=== PATIENT | female | born 1935 | race Caucasian/White ===

== ENCOUNTER 2020-01-16 04:32 | Inpatient (IN) ==
[2020-01-16] MEDS ORDERED: Isovue-370 500 ML BOTTLE IVP ONE (05:02)
[2020-01-16 05:18] LABS: Basophils # 0.1 K/mcL (0.0-0.2); Basophils % 0.6 %; Eosinophils # 0.3 K/mcL (0.0-0.6); Hematocrit 39.2 % (35.3-44.9); Hemoglobin 13.2 g/dL (11.5-15.4); Immature Granulocytes % 0.4 % (0-4); Lymphocytes # 2.2 K/mcL (0.6-4.6); Lymphocytes % 23.3 %; Mean Corpuscular HGB Conc 33.7 g/dL (31.6-35.5); Mean Corpuscular Hemoglobin 32.2 pg (28.0-33.3); Mean Corpuscular Volume 95.6 fL (83.0-100.0); Mean Platelet Volume 10.2 fL (9.4-12.4); Monocytes # 1.1 K/mcL (0.0-1.3); Monocytes % 12.2 %; Neutrophils # 5.7 K/mcL (1.6-8.9); Platelet Count 251 K/mcL (140-400); Prothrombin Time 11.6 Seconds (9.4-12.1); Red Cell Distribution Width 12.9 % (11.5-14.5); Segmented Neutrophils % 60.5 %; White Blood Count 9.4 K/mcL (4.3-11.1)
[2020-01-16 05:21] LABS: Activated Partial Thrombo Time 36.2 Seconds (26.0-36.0)
[2020-01-16 05:29] LABS: Alanine Aminotransferase 19 Units/L (7-52); Albumin 4.1 g/dL (3.5-5.7); Albumin/Globulin Ratio 1.5 (1.1-2.2); Alkaline Phosphatase 78 Units/L (34-104); Aspartate Amino Transferase 22 Units/L (13-39); BUN/Creatinine Ratio 28 (6-26); Bilirubin,Direct 0.1 mg/dL (0.0-0.2); Bilirubin,Indirect 0.3 mg/dL (0.0-1.0); Bilirubin,Total 0.4 mg/dL (0.3-1.0); Blood Urea Nitrogen 33 mg/dL (8-23); Calcium 9.4 mg/dL (8.6-10.3); Carbon Dioxide 27 mEq/L (23-29); Chloride 103 mEq/L (98-107); Globulin 2.7 g/dL (2.4-3.5); Glucose 97 mg/dL (70-105); Lipase 42 Units/L (11-82); Osmolality,Calculated 293 (280-300); Potassium 3.7 mEq/L (3.5-5.1); Sodium 138 mEq/L (136-145); Total Protein 6.8 g/dL (6.4-8.9); Troponin I < 0.03 ng/mL (< 0.04); eGFR For African Americans 53 (> 60); eGFR For Non-African Americans 44 (> 60)
[2020-01-16] MEDS ORDERED: Aspirin 325 MG TABLET PO ONE (06:35)
[2020-01-16 06:44] LABS: Bilirubin,Urine Negative (Negative); Blood,Urine Negative (Negative); Clarity,Urine Clear (Clear); Color,Urine Colorless (Yellow); Glucose,Urine (UA) Normal (Normal); Ketones,Urine Negative (Negative); Leukocyte Esterase,Urine Small (Negative); Nitrite,Urine Negative (Negative); PH,Urine 6.5 pH Units (5.0-8.0); Protein,Urine Negative (Neg-Trace); Specific Gravity,Urine 1.026 (1.010-1.025); Squamous Epithelial Cell,Urine Few per hpf (None-Few); Urobilinogen,Urine Normal (Normal)
[2020-01-16] MEDS ORDERED: Morphine Sulfate 2 MG/ML SYRINGE IVP ONE (07:06)
[2020-01-16] MEDS: Nitroglycerin 0.4 MG TAB.SUBL SL PRN ×2 (07:22→07:28)
[2020-01-16 07:58] LABS: Adenovirus Not Detected (Not Detect); Bordetella Pertussis Not Detected (Not Detect); Chlamydophila pneumoniae Not Detected (Not Detect); Coronavirus 229E Not Detected (Not Detect); Coronavirus HKU1 Not Detected (Not Detect); Coronavirus NL63 Not Detected (Not Detect); Coronavirus OC43 Not Detected (Not Detect); Human Metapneumovirus Not Detected (Not Detect); Human Rhinovirus/Enterovirus Not Detected (Not Detect); Influenza A Subtype 2009 H1 Not Detected (Not Detect); Influenza B Not Detected (Not Detect); Mycoplasma pneumoniae Not Detected (Not Detect); Parainfluenza Virus 1 Not Detected (Not Detect); Parainfluenza Virus 2 Not Detected (Not Detect); Parainfluenza Virus 3 Not Detected (Not Detect); Parainfluenza Virus 4 Not Detected (Not Detect); Respiratory Syncytial Virus Not Detected (Not Detect); SARS-CoV-2 Not Detected (Not Detect)
[2020-01-16] MEDS ORDERED: Naloxone 0.4 MG/ML INJ IVP PRN (08:09)
[2020-01-16] MEDS ORDERED: Nitroglycerin 0.4 MG TAB.SUBL SL PRN (08:11)
[2020-01-16] MEDS ORDERED: Loratadine 10 MG TABLET PO PRN (08:11)
[2020-01-16] MEDS ORDERED: Ondansetron 4 MG/2 ML VIAL IVP PRN (08:12)
[2020-01-16] MEDS: Isosorbide MONOnitrate (24 HR) 30 MG TAB.ER.24H PO SCH (10:56)
[2020-01-16] MEDS: Acetaminophen 325 MG TABLET PO PRN ×2 (16:10→21:34)
[2020-01-16] MEDS: Latanoprost 2.5 ML BOTTLE BOTH EYES SCH (21:34)
[2020-01-17 02:13] LABS: Basophils # 0.1 K/mcL (0.0-0.2); Basophils % 0.7 %; Eosinophils # 0.3 K/mcL (0.0-0.6); Eosinophils % 3.7 %; Hematocrit 35.5 % (35.3-44.9); Hemoglobin 11.9 g/dL (11.5-15.4); Immature Granulocytes % 0.3 % (0-4); Lymphocytes # 2.2 K/mcL (0.6-4.6); Lymphocytes % 28.9 %; Mean Corpuscular HGB Conc 33.5 g/dL (31.6-35.5); Mean Corpuscular Hemoglobin 32.7 pg (28.0-33.3); Mean Corpuscular Volume 97.5 fL (83.0-100.0); Mean Platelet Volume 10.1 fL (9.4-12.4); Monocytes # 0.9 K/mcL (0.0-1.3); Monocytes % 11.6 %; Neutrophils # 4.1 K/mcL (1.6-8.9); Platelet Count 216 K/mcL (140-400); Red Blood Count 3.64 M/mcL (3.82-4.97); Red Cell Distribution Width 12.9 % (11.5-14.5); Segmented Neutrophils % 54.8 %; White Blood Count 7.5 K/mcL (4.3-11.1)
[2020-01-17 02:32] LABS: Calcium 9.1 mg/dL (8.6-10.3); Potassium 3.4 mEq/L (3.5-5.1)
[2020-01-17] MEDS ORDERED: Regadenoson 0.4 MG/5 ML SYRINGE IVP ONE (05:51)
[2020-01-17] MEDS: Isosorbide MONOnitrate (24 HR) 30 MG TAB.ER.24H PO SCH (09:55)
[2020-01-17] MEDS: Aspirin Enteric Coated 81 MG Tablet PO SCH (09:56)
[2020-01-17] MEDS: Acetaminophen 325 MG TABLET PO PRN ×2 (13:18→23:12)
[2020-01-17] MEDS: Latanoprost 2.5 ML BOTTLE BOTH EYES SCH (20:49)
[2020-01-17] MEDS ORDERED: Melatonin 3 MG TABLET PO ONE (23:19)
[2020-01-18 02:50] LABS: Basophils # 0.1 K/mcL (0.0-0.2); Basophils % 0.6 %; Eosinophils # 0.3 K/mcL (0.0-0.6); Eosinophils % 3.6 %; Hematocrit 35.8 % (35.3-44.9); Immature Granulocytes % 0.2 % (0-4); Lymphocytes # 1.8 K/mcL (0.6-4.6); Lymphocytes % 22.4 %; Mean Corpuscular HGB Conc 33.5 g/dL (31.6-35.5); Mean Corpuscular Hemoglobin 32.6 pg (28.0-33.3); Mean Corpuscular Volume 97.3 fL (83.0-100.0); Mean Platelet Volume 10.6 fL (9.4-12.4); Monocytes # 0.9 K/mcL (0.0-1.3); Monocytes % 11.3 %; Neutrophils # 5.1 K/mcL (1.6-8.9); Platelet Count 225 K/mcL (140-400); Red Blood Count 3.68 M/mcL (3.82-4.97); Segmented Neutrophils % 61.9 %; White Blood Count 8.2 K/mcL (4.3-11.1)
[2020-01-18 03:08] LABS: BUN/Creatinine Ratio 28 (6-26); Blood Urea Nitrogen 28 mg/dL (8-23); Calcium 8.9 mg/dL (8.6-10.3); Carbon Dioxide 23 mEq/L (23-29); Chloride 103 mEq/L (98-107); Glucose 96 mg/dL (70-105); Magnesium 1.8 mg/dL (1.6-2.6); Osmolality,Calculated 285 (280-300); Potassium 3.6 mEq/L (3.5-5.1); Sodium 135 mEq/L (136-145); eGFR For African Americans > 60 (> 60); eGFR For Non-African Americans 52 (> 60)
[2020-01-18] MEDS: Aspirin Enteric Coated 81 MG Tablet PO SCH (09:40)
[2020-01-18] MEDS: Isosorbide MONOnitrate (24 HR) 30 MG TAB.ER.24H PO SCH (09:41)
[2020-01-18] MEDS: Acetaminophen 325 MG TABLET PO PRN ×2 (12:14→21:39)
[2020-01-18] MEDS ORDERED: *HR* Heparin 10,000 UNIT/10 ML VIAL ONE (13:26)
[2020-01-18] MEDS ORDERED: 0.9 % Sodium Chloride 1,000 ML ONE ×2 (13:26→13:31)
[2020-01-18] MEDS ORDERED: Heparin 1,000 UNITS/500 mL 500 ML ONE (13:26)
[2020-01-18] MEDS ORDERED: ISOVUE-370 200 ML INFUS..BTL ONE (13:26)
[2020-01-18] MEDS ORDERED: Nitroglycerin 1,000 MCG/10 ML VIAL IV ONE (13:27)
[2020-01-18] MEDS ORDERED: *HR* FentaNYL (PF) 100 MCG/2 ML VIAL ONE (13:30)
[2020-01-18] MEDS ORDERED: *HR* Midazolam HCl 2 MG/2 ML VIAL ONE (13:30)
[2020-01-18] MEDS ORDERED: Fluticasone Propionate Nasal 50 MCG/SPRAY BOTTLE NS SCH (21:00)
[2020-01-18] MEDS: Latanoprost 2.5 ML BOTTLE BOTH EYES SCH (21:26)
[2020-01-19 03:05] LABS: Hematocrit 35.5 % (35.3-44.9)
[2020-01-19 07:12] VITALS: BP 108/56
[2020-01-19] MEDS ORDERED: Isosorbide MONOnitrate (24 HR) 60 MG TAB.ER.24H PO SCH (09:00)
[2020-01-19] MEDS ORDERED: Cholecalciferol (D-3) 1,000 UNIT (25MCG) TABLET PO SCH (09:00)
[2020-01-19] MEDS ORDERED: Ascorbic Acid 500 MG TABLET PO SCH (09:00)
[2020-01-19] MEDS ORDERED: Cyanocobalamin (B-12) 1,000 MCG TABLET PO SCH (09:00)
[2020-01-19] MEDS: Aspirin Enteric Coated 81 MG Tablet PO SCH (10:39)
== END 2020-01-19 11:58 | disposition home or self-care (01) | DRG 287 ==
LOC: EMEROOARM 04:32 → 3BNU 04:32 → SUATTDRO 08:15 → 3BNU 08:54
PROVIDERS: ADMIT Internal Medicine; ATTEND Family Medicine

== ENCOUNTER 2020-01-26 14:20 | Inpatient (IN) ==
[2020-01-26 15:28] LABS: Hematocrit 34.8 % (35.3-44.9); Hemoglobin 11.3 g/dL (11.5-15.4); Mean Corpuscular HGB Conc 32.5 g/dL (31.6-35.5); Mean Corpuscular Hemoglobin 32.3 pg (28.0-33.3); Mean Corpuscular Volume 99.4 fL (83.0-100.0); Mean Platelet Volume 10.3 fL (9.4-12.4); Platelet Count 234 K/mcL (140-400); Red Cell Distribution Width 13.2 % (11.5-14.5); White Blood Count 8.1 K/mcL (4.3-11.1)
[2020-01-26 15:57] LABS: BUN/Creatinine Ratio 20 (6-26); Blood Urea Nitrogen 20 mg/dL (8-23); Calcium 8.6 mg/dL (8.6-10.3); Carbon Dioxide 23 mEq/L (23-29); Chloride 108 mEq/L (98-107); Glucose 77 mg/dL (70-105); Osmolality,Calculated 289 (280-300); Potassium 3.9 mEq/L (3.5-5.1); Sodium 139 mEq/L (136-145); Troponin I < 0.03 ng/mL (< 0.04); eGFR For African Americans > 60 (> 60); eGFR For Non-African Americans 53 (> 60)
[2020-01-26] MEDS ORDERED: Loratadine 10 MG TABLET PO PRN (18:05)
[2020-01-26] MEDS ORDERED: Nitroglycerin 0.4 MG TAB.SUBL SL PRN (18:05)
[2020-01-26] MEDS ORDERED: Mag Hydrox/Al Hydrox/Simeth 30 ML UDC PO PRN (18:06)
[2020-01-26] MEDS ORDERED: MOM Conc 10 ML UD.LIQ PO PRN (18:06)
[2020-01-26] MEDS ORDERED: Naloxone 0.4 MG/ML INJ IVP PRN (18:06)
[2020-01-26] MEDS ORDERED: *HR* Promethazine 25 MG/ML VIAL IVP PRN (18:06)
[2020-01-26] MEDS ORDERED: Ondansetron 4 MG/2 ML VIAL IVP PRN (18:06)
[2020-01-26] MEDS: lisinopriL 10 MG TABLET PO SCH (18:55)
[2020-01-26 20:29] LABS: Bilirubin,Urine Negative (Negative); Blood,Urine Negative (Negative); Clarity,Urine Clear (Clear); Color,Urine Light-Yellow (Yellow); Glucose,Urine (UA) Normal (Normal); Ketones,Urine Negative (Negative); Leukocyte Esterase,Urine Negative (Negative); Nitrite,Urine Negative (Negative); PH,Urine 6.5 pH Units (5.0-8.0); Protein,Urine Negative (Neg-Trace); Specific Gravity,Urine 1.012 (1.010-1.025); Urobilinogen,Urine Normal (Normal)
[2020-01-26 20:36] LABS: Mucus,Urine Few per lpf (None-Few); RBC,Urine 0-3 per hpf (0-3); WBC,Urine 0-3 per hpf (0-3)
[2020-01-26] MEDS: Fluticasone Propionate Nasal 50 MCG/SPRAY BOTTLE NS SCH (20:43)
[2020-01-26] MEDS: Latanoprost 2.5 ML BOTTLE BOTH EYES SCH (20:43)
[2020-01-27] MEDS: Acetaminophen 325 MG TABLET PO PRN ×2 (02:52→13:22)
[2020-01-27 04:59] LABS: Basophils # 0.1 K/mcL (0.0-0.2); Basophils % 0.7 %; Eosinophils # 0.2 K/mcL (0.0-0.6); Eosinophils % 3.4 %; Hematocrit 33.8 % (35.3-44.9); Immature Granulocytes % 0.3 % (0-4); Lymphocytes # 1.6 K/mcL (0.6-4.6); Lymphocytes % 24.1 %; Mean Corpuscular HGB Conc 32.5 g/dL (31.6-35.5); Mean Corpuscular Volume 98.3 fL (83.0-100.0); Mean Platelet Volume 10.7 fL (9.4-12.4); Monocytes # 0.8 K/mcL (0.0-1.3); Monocytes % 12.1 %; Platelet Count 215 K/mcL (140-400); Red Blood Count 3.44 M/mcL (3.82-4.97); Red Cell Distribution Width 13.3 % (11.5-14.5); Segmented Neutrophils % 59.4 %; White Blood Count 6.7 K/mcL (4.3-11.1)
[2020-01-27 05:17] LABS: BUN/Creatinine Ratio 19 (6-26); Blood Urea Nitrogen 20 mg/dL (8-23); Calcium 8.7 mg/dL (8.6-10.3); Carbon Dioxide 25 mEq/L (23-29); Chloride 108 mEq/L (98-107); Glucose 85 mg/dL (70-105); Magnesium 1.6 mg/dL (1.6-2.6); Osmolality,Calculated 292 (280-300); Phosphorous 4.3 mg/dL (2.7-4.5); Potassium 3.7 mEq/L (3.5-5.1); Sodium 140 mEq/L (136-145); eGFR For African Americans > 60 (> 60); eGFR For Non-African Americans 50 (> 60)
[2020-01-27] MEDS: Cyanocobalamin (B-12) 1,000 MCG TABLET PO SCH (07:55)
[2020-01-27] MEDS: Aspirin Enteric Coated 81 MG Tablet PO SCH (07:55)
[2020-01-27] MEDS: Ascorbic Acid 500 MG TABLET PO SCH (07:55)
[2020-01-27] MEDS: Cholecalciferol (D-3) 1,000 UNIT (25MCG) TABLET PO SCH (07:55)
[2020-01-27] MEDS: lisinopriL 10 MG TABLET PO SCH (07:55)
[2020-01-27] MEDS: Isosorbide MONOnitrate (24 HR) 60 MG TAB.ER.24H PO SCH (07:55)
[2020-01-27] MEDS ORDERED: 0.9 % Sodium Chloride 500 ML ONE (11:34)
[2020-01-27] MEDS: Ranolazine 500 MG TAB.ER.12H PO SCH ×2 (13:24→20:02)
[2020-01-27] MEDS: Latanoprost 2.5 ML BOTTLE BOTH EYES SCH (20:02)
[2020-01-27] MEDS: Fluticasone Propionate Nasal 50 MCG/SPRAY BOTTLE NS SCH (20:02)
[2020-01-27] MEDS ORDERED: Melatonin 3 MG TABLET PO ONE (20:18)
[2020-01-28 01:52] LABS: Hematocrit 32.5 % (35.3-44.9); Hemoglobin 10.6 g/dL (11.5-15.4); Mean Corpuscular HGB Conc 32.6 g/dL (31.6-35.5); Mean Corpuscular Hemoglobin 32.6 pg (28.0-33.3); Mean Platelet Volume 10.5 fL (9.4-12.4); Platelet Count 209 K/mcL (140-400); Red Blood Count 3.25 M/mcL (3.82-4.97); Red Cell Distribution Width 13.3 % (11.5-14.5); White Blood Count 6.9 K/mcL (4.3-11.1)
[2020-01-28 02:05] LABS: Calcium 8.8 mg/dL (8.6-10.3); Potassium 3.6 mEq/L (3.5-5.1)
[2020-01-28] MEDS: Ranolazine 500 MG TAB.ER.12H PO SCH ×2 (08:00→20:23)
[2020-01-28] MEDS: Ascorbic Acid 500 MG TABLET PO SCH (08:00)
[2020-01-28] MEDS: Cholecalciferol (D-3) 1,000 UNIT (25MCG) TABLET PO SCH (08:00)
[2020-01-28] MEDS: Cyanocobalamin (B-12) 1,000 MCG TABLET PO SCH (08:00)
[2020-01-28] MEDS: Isosorbide MONOnitrate (24 HR) 60 MG TAB.ER.24H PO SCH (08:00)
[2020-01-28] MEDS: lisinopriL 10 MG TABLET PO SCH (08:00)
[2020-01-28] MEDS: Aspirin Enteric Coated 81 MG Tablet PO SCH (08:00)
[2020-01-28] MEDS ORDERED: Melatonin 3 MG TABLET PO ONE (19:46)
[2020-01-28] MEDS: Latanoprost 2.5 ML BOTTLE BOTH EYES SCH (20:25)
[2020-01-28] MEDS: Fluticasone Propionate Nasal 50 MCG/SPRAY BOTTLE NS SCH (20:25)
[2020-01-29 08:14] VITALS: BP 148/63
[2020-01-29] MEDS: Ranolazine 500 MG TAB.ER.12H PO SCH (08:34)
[2020-01-29] MEDS: lisinopriL 10 MG TABLET PO SCH (08:34)
[2020-01-29] MEDS: Cholecalciferol (D-3) 1,000 UNIT (25MCG) TABLET PO SCH (08:34)
[2020-01-29] MEDS: Aspirin Enteric Coated 81 MG Tablet PO SCH (08:35)
[2020-01-29] MEDS: Ascorbic Acid 500 MG TABLET PO SCH (08:35)
[2020-01-29] MEDS: Cyanocobalamin (B-12) 1,000 MCG TABLET PO SCH (08:35)
[2020-01-29] MEDS: Isosorbide MONOnitrate (24 HR) 60 MG TAB.ER.24H PO SCH (08:41)
== END 2020-01-29 11:04 | disposition home or self-care (01) | DRG 303 ==
LOC: 3BNU 14:20 → EMEROOARM 14:20 → 3BNU 18:40
PROVIDERS: ADMIT Internal Medicine; ATTEND Internal Medicine

== ENCOUNTER 2021-10-19 00:20 | Inpatient (IN) ==
[2021-10-19] MEDS ORDERED: Ondansetron 4 MG/2 ML VIAL IVP ONE (01:26)
[2021-10-19] MEDS ORDERED: Morphine Sulfate 2 MG/ML SYRINGE IVP ONE ×2 (01:26→02:33)
[2021-10-19] MEDS ORDERED: 0.9 % Sodium Chloride 1,000 ML IVC ONE ×2 (01:26→06:05)
[2021-10-19] MEDS ORDERED: Iopamidol - 370 500 ML MLS IVP ONE (01:29)
[2021-10-19 02:10] LABS: Basophils # 0.1 K/mcL (0.0-0.2); Basophils % 0.3 %; Eosinophils # 0.1 K/mcL (0.0-0.6); Eosinophils % 0.5 %; Hematocrit 40.3 % (35.3-44.9); Hemoglobin 13.5 g/dL (11.5-15.4); Immature Granulocytes % 0.5 % (0-4); Lymphocytes # 2.1 K/mcL (0.6-4.6); Lymphocytes % 10.6 %; Mean Corpuscular HGB Conc 33.5 g/dL (31.6-35.5); Mean Corpuscular Hemoglobin 33.6 pg (28.0-33.3); Mean Corpuscular Volume 100.2 fL (83.0-100.0); Mean Platelet Volume 10.1 fL (9.4-12.4); Monocytes % 4.8 %; Neutrophils # 16.8 K/mcL (1.6-8.9); Platelet Count 407 K/mcL (140-400); Red Blood Count 4.02 M/mcL (3.82-4.97); Red Cell Distribution Width 14.1 % (11.5-14.5); Segmented Neutrophils % 83.3 %; White Blood Count 20.2 K/mcL (4.3-11.1)
[2021-10-19 02:31] LABS: Albumin 3.5 g/dL (3.5-5.7); Albumin/Globulin Ratio 1.3 (1.1-2.2); Bilirubin,Direct 0.2 mg/dL (0.0-0.2); Bilirubin,Indirect 0.5 mg/dL (0.0-1.0); Bilirubin,Total 0.7 mg/dL (0.3-1.0); Calcium 9.8 mg/dL (8.6-10.3); Globulin 2.6 g/dL (2.4-3.5); Potassium 4.4 mEq/L (3.5-5.1); Total Protein 6.1 g/dL (6.4-8.9)
[2021-10-19] MEDS ORDERED: Piperacillin/Tazobactam 3.375 GM in 0.9 % Sodium Chloride Mini Bag 100 ML IVPB ONE (03:38)
[2021-10-19] MEDS ORDERED: Prochlorperazine 10 MG/2 ML VIAL IVP ONE (04:24)
[2021-10-19] MEDS ORDERED: 0.9 % Sodium Chloride 1,000 ML ONE (06:04)
[2021-10-19 06:16] LABS: Adenovirus Not Detected (Not Detect); Coronavirus 229E Not Detected (Not Detect); Coronavirus HKU1 Not Detected (Not Detect); Coronavirus NL63 Not Detected (Not Detect); Coronavirus OC43 Not Detected (Not Detect); Human Metapneumovirus Not Detected (Not Detect); Human Rhinovirus/Enterovirus DETECTED (Not Detect); Influenza A Subtype 2009 H1 Not Detected (Not Detect); Influenza B Not Detected (Not Detect); Parainfluenza Virus 1 Not Detected (Not Detect); Parainfluenza Virus 2 Not Detected (Not Detect); Parainfluenza Virus 3 Not Detected (Not Detect); Parainfluenza Virus 4 Not Detected (Not Detect); Respiratory Syncytial Virus Not Detected (Not Detect); SARS-CoV-2 Not Detected (Not Detect)
[2021-10-19 06:17] LABS: Bordetella Pertussis Not Detected (Not Detect); Chlamydophila pneumoniae Not Detected (Not Detect); Mycoplasma pneumoniae Not Detected (Not Detect)
[2021-10-19] MEDS ORDERED: Ondansetron 4 MG/2 ML VIAL IVP PRN (06:37)
[2021-10-19] MEDS ORDERED: Naloxone 0.4 MG/ML INJ IVP PRN (06:37)
[2021-10-19] MEDS ORDERED: Melatonin 3 MG TABLET PO PRN (06:37)
[2021-10-19] MEDS ORDERED: 0.9 % Sodium Chloride 1,000 ML IVC SCH (06:45)
[2021-10-19] MEDS ORDERED: Benzonatate 100 MG CAPSULE PO PRN (06:51)
[2021-10-19 11:14] LABS: Estimated Average Glucose 111 mg/dl; Hemoglobin A1C 5.5 %
[2021-10-19 11:18] LABS: Calcium 7.7 mg/dL (8.6-10.3); Potassium 4.3 mEq/L (3.5-5.1)
[2021-10-19] MEDS ORDERED: Ringers Solution, Lactated 1,000 ML IVC ONE (12:07)
[2021-10-19] MEDS: Ringers Solution, Lactated 1,000 ML IVC SCH ×2 (13:21→19:52)
[2021-10-19] MEDS ORDERED: Piperacillin/Tazobactam 3.375 GM in 0.9 % Sodium Chloride Mini Bag 100 ML IVPB SCH ×2 (14:00)
[2021-10-20] MEDS: Piperacillin/Tazobactam 3.375 GM in 0.9 % Sodium Chloride Mini Bag 100 ML IVPB SCH ×4 (02:00→23:30)
[2021-10-20] MEDS: Ringers Solution, Lactated 1,000 ML IVC SCH ×3 (02:07→10:31)
[2021-10-20 02:10] LABS: Basophils % 0.1 %; Hematocrit 32.5 % (35.3-44.9); Immature Granulocytes % 0.5 % (0-4); Lymphocytes # 0.8 K/mcL (0.6-4.6); Lymphocytes % 5.1 %; Mean Corpuscular HGB Conc 33.2 g/dL (31.6-35.5); Mean Corpuscular Hemoglobin 33.2 pg (28.0-33.3); Monocytes % 13.5 %; Neutrophils # 12.2 K/mcL (1.6-8.9); Platelet Count 284 K/mcL (140-400); Red Blood Count 3.25 M/mcL (3.82-4.97); Red Cell Distribution Width 14.4 % (11.5-14.5); Segmented Neutrophils % 80.8 %; White Blood Count 15.1 K/mcL (4.3-11.1)
[2021-10-20 02:15] LABS: Hemoglobin 10.8 g/dL (11.5-15.4)
[2021-10-20 02:28] LABS: Calcium 7.6 mg/dL (8.6-10.3); Potassium 4.5 mEq/L (3.5-5.1)
[2021-10-20 02:41] LABS: Platelet Estimate Normal (Normal)
[2021-10-20] MEDS ORDERED: *HR* Metoprolol 5 MG/5 ML VIAL IVP ONE (18:58)
[2021-10-20] MEDS: Ranolazine 500 MG TAB.ER.12H PO SCH (20:21)
[2021-10-20] MEDS: Patient Taking Own Medication 1 EACH IH SCH (20:25)
[2021-10-20] MEDS: Budesonide/Formoterol 160/4.5 1 PUFF INH IH SCH (20:38)
[2021-10-20] MEDS ORDERED: carvediloL 6.25 MG TABLET PO SCH (21:00)
[2021-10-20] MEDS ORDERED: NON-FORMULARY MEDICATION 1 EACH EACH (Ipratropium Bromide 15 ML Spray) NS SCH (21:00)
[2021-10-20] MEDS ORDERED: 0.9 % Sodium Chloride 1,000 ML IVC ONE (23:09)
[2021-10-21] MEDS: Ipratropium/Albuterol Neb 3 ML IH PRN ×2 (01:10→08:27)
[2021-10-21 01:33] LABS: Basophils # 0.1 K/mcL (0.0-0.2); Basophils % 0.5 %; Eosinophils % 0.1 %; Hematocrit 28.2 % (35.3-44.9); Immature Granulocytes % 0.1 % (0-4); Lymphocytes # 0.7 K/mcL (0.6-4.6); Mean Corpuscular HGB Conc 32.6 g/dL (31.6-35.5); Mean Corpuscular Hemoglobin 33.1 pg (28.0-33.3); Mean Corpuscular Volume 101.4 fL (83.0-100.0); Mean Platelet Volume 10.1 fL (9.4-12.4); Monocytes # 1.2 K/mcL (0.0-1.3); Monocytes % 8.8 %; Neutrophils # 11.4 K/mcL (1.6-8.9); Platelet Count 220 K/mcL (140-400); Red Blood Count 2.78 M/mcL (3.82-4.97); Red Cell Distribution Width 14.7 % (11.5-14.5); Segmented Neutrophils % 85.5 %; White Blood Count 13.3 K/mcL (4.3-11.1)
[2021-10-21 01:39] LABS: Hemoglobin 9.2 g/dL (11.5-15.4)
[2021-10-21] MEDS: Ringers Solution, Lactated 1,000 ML IVC SCH (01:39)
[2021-10-21] MEDS ORDERED: 0.9 % Sodium Chloride 1,000 ML IVC ONE (03:22)
[2021-10-21 04:09] LABS: ABG Base Excess -5 mEq/L (-2 to 3); ABG HCO3 19 mEq/L (21-27); ABG Oxygen Saturation 97 % (95-98); ABG PCO2 30 mmHg (35-45); ABG PO2 86 mmHg (85-104); ABG TCO2 20 mEq/L (20-26); Blood Gas Modality OXYMASK
[2021-10-21] MEDS ORDERED: Furosemide 40 MG/4 ML VIAL IVP ONE ×2 (05:59→07:19)
[2021-10-21] MEDS ORDERED: *HR* Metoprolol 5 MG/5 ML VIAL IVP ONE (06:00)
[2021-10-21] MEDS: Budesonide/Formoterol 160/4.5 1 PUFF INH IH SCH ×2 (07:44→21:15)
[2021-10-21] MEDS: Piperacillin/Tazobactam 3.375 GM in 0.9 % Sodium Chloride Mini Bag 100 ML IVPB SCH ×2 (08:29→15:53)
[2021-10-21] MEDS: Ranolazine 500 MG TAB.ER.12H PO SCH ×2 (08:40→20:48)
[2021-10-21] MEDS: Cyanocobalamin (B-12) 1,000 MCG TABLET PO SCH (08:40)
[2021-10-21] MEDS: Cholecalciferol (D-3) 1,000 UNIT (25MCG) TABLET PO SCH (08:40)
[2021-10-21] MEDS: Ascorbic Acid 500 MG TABLET PO SCH (08:40)
[2021-10-21] MEDS: Patient Taking Own Medication 1 EACH IH SCH (08:40)
[2021-10-21 08:57] LABS: ABG Base Excess -5 mEq/L (-2 to 3); ABG HCO3 19 mEq/L (21-27); ABG Oxygen Saturation 94 % (95-98); ABG PCO2 34 mmHg (35-45); ABG PH 7.37 pH Units (7.32-7.45); ABG PO2 73 mmHg (85-104); ABG TCO2 20 mEq/L (20-26)
[2021-10-21] MEDS ORDERED: Iopamidol - 370 500 ML MLS IVP ONE (12:43)
[2021-10-21] MEDS: Furosemide 40 MG/4 ML VIAL IVP SCH (12:44)
[2021-10-21] MEDS ORDERED: *HR* LORazepam 2 MG/ML VIAL IVP PRN (13:13)
[2021-10-21] MEDS: Dexmedetomidine HCl 400 MCG/100 ML MLS IVC SCH (14:56)
[2021-10-21] MEDS: Levalbuterol Neb 1.25 MG/3 ML IH SCH ×2 (15:29→21:15)
[2021-10-21] MEDS: *HR* Metoprolol 5 MG/5 ML VIAL IVP PRN (15:56)
[2021-10-21] MEDS ORDERED: Acetaminophen IV 1,000 MG/100 ML BAG IVPB ONE (16:12)
[2021-10-21] MEDS ORDERED: DilTIAZem 50 MG/50 ML IV.SOLN IVC SCH (16:15)
[2021-10-21] MEDS ORDERED: *HR* Digoxin 0.5 MG/2 ML AMPUL IVP ONE (16:55)
[2021-10-21] MEDS ORDERED: Furosemide 40 MG/4 ML VIAL IVP SCH (17:00)
[2021-10-21] MEDS: *HR* Heparin 5,000 UNIT/ML VIAL SQ SCH (17:46)
[2021-10-21] MEDS ORDERED: 0.9 % Sodium Chloride 1,000 ML ONE ×2 (18:22→18:37)
[2021-10-21] MEDS ORDERED: Albumin 25% 25gram/100mL 25 GM/100 ML IV.SOLN ONE (18:26)
[2021-10-21] MEDS: Norepinephrine 4 MG/254 ML IV.SOLN IVC SCH (19:00)
[2021-10-21] MEDS: Albumin Human 5% 12.5 GM/250 ML IV.SOLN IVC SCH ×2 (20:09→23:43)
[2021-10-21 21:26] LABS: Blood Gas Pressure Support 6 cm H2O; Mixed Venous Blood pCO2 30 mmHg (44-46); Mixed Venous Blood pO2 30 mmHg (35-45)
[2021-10-22 00:35] LABS: Potassium 3.1 mEq/L (3.5-5.1)
[2021-10-22 00:37] LABS: Hematocrit 24.8 % (35.3-44.9); Hemoglobin 8.2 g/dL (11.5-15.4); Mean Corpuscular HGB Conc 33.1 g/dL (31.6-35.5); Mean Corpuscular Hemoglobin 33.2 pg (28.0-33.3); Mean Corpuscular Volume 100.4 fL (83.0-100.0); Mean Platelet Volume 10.3 fL (9.4-12.4); Platelet Count 203 K/mcL (140-400); Red Blood Count 2.47 M/mcL (3.82-4.97); Red Cell Distribution Width 14.8 % (11.5-14.5); White Blood Count 13.6 K/mcL (4.3-11.1)
[2021-10-22] MEDS: Piperacillin/Tazobactam 3.375 GM in 0.9 % Sodium Chloride Mini Bag 100 ML IVPB SCH ×4 (00:43→23:53)
[2021-10-22] MEDS: Potassium Chloride 40 MEQ/200 ML BAG IVPB PRN ×2 (01:54→03:03)
[2021-10-22] MEDS: *HR* Heparin 5,000 UNIT/ML VIAL SQ SCH (04:05)
[2021-10-22] MEDS: Norepinephrine 4 MG/254 ML IV.SOLN IVC SCH (04:05)
[2021-10-22] MEDS: Levalbuterol Neb 1.25 MG/3 ML IH SCH ×4 (04:06→21:54)
[2021-10-22 06:01] LABS: Basophils % 0.1 %; Hematocrit 27.3 % (35.3-44.9); Hemoglobin 8.8 g/dL (11.5-15.4); Immature Granulocytes % 2.2 % (0-4); Lymphocytes # 0.7 K/mcL (0.6-4.6); Lymphocytes % 4.4 %; Mean Corpuscular HGB Conc 32.2 g/dL (31.6-35.5); Mean Corpuscular Hemoglobin 32.4 pg (28.0-33.3); Mean Corpuscular Volume 100.4 fL (83.0-100.0); Mean Platelet Volume 10.5 fL (9.4-12.4); Monocytes # 1.1 K/mcL (0.0-1.3); Monocytes % 7.4 %; Neutrophils # 13.2 K/mcL (1.6-8.9); Platelet Count 222 K/mcL (140-400); Red Blood Count 2.72 M/mcL (3.82-4.97); Red Cell Distribution Width 14.9 % (11.5-14.5); Segmented Neutrophils % 85.9 %; White Blood Count 15.4 K/mcL (4.3-11.1)
[2021-10-22] MEDS: Budesonide/Formoterol 160/4.5 1 PUFF INH IH SCH ×2 (07:30→21:55)
[2021-10-22 08:18] LABS: Calcium 7.1 mg/dL (8.6-10.3); Potassium 4.1 mEq/L (3.5-5.1)
[2021-10-22] MEDS: Cholecalciferol (D-3) 1,000 UNIT (25MCG) TABLET PO SCH (08:46)
[2021-10-22] MEDS: Furosemide 40 MG/4 ML VIAL IVP SCH ×2 (08:46→16:03)
[2021-10-22] MEDS: Hydrocortisone Sodium Succ 100 MG/2 ML VIAL IVP SCH ×3 (08:46→23:53)
[2021-10-22] MEDS: Ascorbic Acid 500 MG TABLET PO SCH (08:47)
[2021-10-22] MEDS: Cyanocobalamin (B-12) 1,000 MCG TABLET PO SCH (08:47)
[2021-10-22] MEDS: Ranolazine 500 MG TAB.ER.12H PO SCH ×2 (08:47→20:01)
[2021-10-22] MEDS ORDERED: Perflutren Lipid Microsphere 1.3 ML in 0.9 % Sodium Chloride 8.7 ML IVP PRN (09:20)
[2021-10-22] MEDS ORDERED: *HR* Metoprolol 5 MG/5 ML VIAL IVP ONE (12:18)
[2021-10-22] MEDS: Dexmedetomidine HCl 400 MCG/100 ML MLS IVC SCH (12:28)
[2021-10-22] MEDS ORDERED: *HR* Digoxin 0.5 MG/2 ML AMPUL IVP ONE ×2 (13:45→16:54)
[2021-10-22] MEDS ORDERED: *HR* Heparin 5,000 UNIT/ML VIAL IVP PRN ×2 (14:20)
[2021-10-22] MEDS: *HR* Metoprolol 5 MG/5 ML VIAL IVP PRN (14:27)
[2021-10-22 15:33] LABS: Hematocrit 27.8 % (35.3-44.9); Hemoglobin 9.1 g/dL (11.5-15.4); Heparin anti-factor XA UFH < 0.04 IU/mL (0.30-0.70); INR 1.2; Mean Corpuscular HGB Conc 32.7 g/dL (31.6-35.5); Mean Corpuscular Hemoglobin 32.2 pg (28.0-33.3); Mean Corpuscular Volume 98.2 fL (83.0-100.0); Platelet Count 218 K/mcL (140-400); Prothrombin Time 13.7 Seconds (9.4-12.1); Red Blood Count 2.83 M/mcL (3.82-4.97); Red Cell Distribution Width 14.8 % (11.5-14.5); White Blood Count 16.4 K/mcL (4.3-11.1)
[2021-10-22] MEDS: Heparin 25,000UNIT/250ML 1/2NS 25,000 UNIT/250 ML IV.SOLN IVC SCH (15:47)
[2021-10-22] MEDS ORDERED: DilTIAZem 50 MG in 0.9 % Sodium Chloride 40 ML IVC SCH (16:00)
[2021-10-22] MEDS ORDERED: *HR* Digoxin 0.5 MG/2 ML AMPUL IVP SCH (20:00)
[2021-10-23] MEDS: Levalbuterol Neb 1.25 MG/3 ML IH SCH ×4 (04:21→21:19)
[2021-10-23 05:06] LABS: Basophils % 0.1 %; Hematocrit 28.4 % (35.3-44.9); Hemoglobin 9.3 g/dL (11.5-15.4); Immature Granulocytes % 0.7 % (0-4); Lymphocytes # 0.7 K/mcL (0.6-4.6); Lymphocytes % 3.5 %; Mean Corpuscular HGB Conc 32.7 g/dL (31.6-35.5); Mean Corpuscular Hemoglobin 32.6 pg (28.0-33.3); Mean Corpuscular Volume 99.6 fL (83.0-100.0); Mean Platelet Volume 10.7 fL (9.4-12.4); Monocytes # 1.5 K/mcL (0.0-1.3); Neutrophils # 18.8 K/mcL (1.6-8.9); Platelet Count 220 K/mcL (140-400); Red Blood Count 2.85 M/mcL (3.82-4.97); Red Cell Distribution Width 14.9 % (11.5-14.5); Segmented Neutrophils % 88.7 %; White Blood Count 21.2 K/mcL (4.3-11.1)
[2021-10-23 05:24] LABS: Calcium 7.1 mg/dL (8.6-10.3)
[2021-10-23] MEDS: Potassium Chloride 40 MEQ/200 ML BAG IVPB PRN ×3 (06:00→22:36)
[2021-10-23] MEDS: Norepinephrine 4 MG/254 ML IV.SOLN IVC SCH ×2 (06:16→11:28)
[2021-10-23] MEDS ORDERED: Potassium Chloride 20 MEQ in D5% in Water 1,000 ML IVC SCH (07:15)
[2021-10-23] MEDS: Budesonide/Formoterol 160/4.5 1 PUFF INH IH SCH ×2 (07:50→21:19)
[2021-10-23] MEDS: Piperacillin/Tazobactam 3.375 GM in 0.9 % Sodium Chloride Mini Bag 100 ML IVPB SCH ×3 (09:05→23:06)
[2021-10-23] MEDS: Hydrocortisone Sodium Succ 100 MG/2 ML VIAL IVP SCH ×3 (09:05→23:06)
[2021-10-23] MEDS: Ascorbic Acid 500 MG TABLET PO SCH (09:09)
[2021-10-23] MEDS: Ranolazine 500 MG TAB.ER.12H PO SCH ×2 (09:09→20:49)
[2021-10-23] MEDS: Cholecalciferol (D-3) 1,000 UNIT (25MCG) TABLET PO SCH (09:10)
[2021-10-23] MEDS: Cyanocobalamin (B-12) 1,000 MCG TABLET PO SCH (09:10)
[2021-10-23] MEDS: *HR* Digoxin 0.125 MG TABLET PO SCH (11:56)
[2021-10-23] MEDS: Heparin 25,000UNIT/250ML 1/2NS 25,000 UNIT/250 ML IV.SOLN IVC SCH (17:17)
[2021-10-23 20:53] LABS: VBG Ionized Calcium 0.96 mmol/L (1.15-1.35)
[2021-10-23 21:14] LABS: Calcium 7.1 mg/dL (8.6-10.3); Magnesium 2.1 mg/dL (1.6-2.6); Potassium 3.4 mEq/L (3.5-5.1)
[2021-10-23] MEDS: Furosemide 20 MG/2 ML VIAL IVP SCH (21:40)
[2021-10-23] MEDS: Calcium Gluconate 1gm/50mL 1 GM/50 ML BAG IVPB PRN (22:09)
[2021-10-24] MEDS: Levalbuterol Neb 1.25 MG/3 ML IH SCH ×5 (03:23→22:16)
[2021-10-24 05:41] LABS: Basophils % 0.3 %; Hemoglobin 9.1 g/dL (11.5-15.4); Nucleated Red Blood Cells 0.1 /100 WBC (0); Red Cell Distribution Width 14.9 % (11.5-14.5)
[2021-10-24 05:43] LABS: Basophils # 0.1 K/mcL (0.0-0.2); Eosinophils % 0.1 %; Hematocrit 27.1 % (35.3-44.9); Immature Granulocytes % 1.1 % (0-4); Lymphocytes # 0.8 K/mcL (0.6-4.6); Lymphocytes % 2.6 %; Mean Corpuscular HGB Conc 33.6 g/dL (31.6-35.5); Mean Corpuscular Hemoglobin 32.9 pg (28.0-33.3); Mean Corpuscular Volume 97.8 fL (83.0-100.0); Mean Platelet Volume 10.8 fL (9.4-12.4); Monocytes # 1.9 K/mcL (0.0-1.3); Monocytes % 6.4 %; Platelet Count 221 K/mcL (140-400); Red Blood Count 2.77 M/mcL (3.82-4.97); Segmented Neutrophils % 89.5 %
[2021-10-24 05:53] LABS: White Blood Count 30.2 K/mcL (4.3-11.1)
[2021-10-24 06:43] LABS: Calcium 6.3 mg/dL (8.6-10.3)
[2021-10-24] MEDS: Piperacillin/Tazobactam 3.375 GM in 0.9 % Sodium Chloride Mini Bag 100 ML IVPB SCH ×2 (07:50→16:03)
[2021-10-24] MEDS: Calcium Gluconate 1gm/50mL 1 GM/50 ML BAG IVPB PRN (07:51)
[2021-10-24] MEDS: Furosemide 20 MG/2 ML VIAL IVP SCH (07:51)
[2021-10-24] MEDS: Hydrocortisone Sodium Succ 100 MG/2 ML VIAL IVP SCH (07:51)
[2021-10-24] MEDS: *HR* Digoxin 0.125 MG TABLET PO SCH (08:02)
[2021-10-24] MEDS: Ranolazine 500 MG TAB.ER.12H PO SCH ×2 (08:02→21:29)
[2021-10-24] MEDS: Cholecalciferol (D-3) 1,000 UNIT (25MCG) TABLET PO SCH (08:03)
[2021-10-24] MEDS: Ascorbic Acid 500 MG TABLET PO SCH (08:03)
[2021-10-24] MEDS: Cyanocobalamin (B-12) 1,000 MCG TABLET PO SCH (08:03)
[2021-10-24] MEDS: Budesonide/Formoterol 160/4.5 1 PUFF INH IH SCH ×3 (09:43→22:16)
[2021-10-24] MEDS ORDERED: Benzonatate 100 MG CAPSULE PO PRN (09:56)
[2021-10-24] MEDS ORDERED: Calcium Gluconate 1gm/50mL 1 GM/50 ML BAG IVPB PRN (09:56)
[2021-10-24] MEDS ORDERED: *HR* Heparin 5,000 UNIT/ML VIAL IVP PRN ×2 (09:56)
[2021-10-24] MEDS ORDERED: Norepinephrine 4 MG/254 ML IV.SOLN IVC SCH (09:56)
[2021-10-24] MEDS ORDERED: *HR* LORazepam 2 MG/ML VIAL IVP PRN (09:56)
[2021-10-24] MEDS ORDERED: Naloxone 0.4 MG/ML INJ IVP PRN (09:56)
[2021-10-24] MEDS ORDERED: *HR* Metoprolol 5 MG/5 ML VIAL IVP PRN (09:56)
[2021-10-24] MEDS ORDERED: Piperacillin/Tazobactam 3.375 GM in 0.9 % Sodium Chloride Mini Bag 100 ML IVPB SCH (11:00)
[2021-10-24] MEDS ORDERED: E-Z-PAQUE (BARIUM SULF) SUSP 1 BOTTLE PO ONE (11:54)
[2021-10-24] MEDS ORDERED: E-Z-HD (BARIUM SULF) SUSPENSION PO ONE (11:54)
[2021-10-24] MEDS: Heparin 25,000UNIT/250ML 1/2NS 25,000 UNIT/250 ML IV.SOLN IVC SCH ×2 (12:35→14:00)
[2021-10-24] MEDS: Furosemide 40 MG TABLET PO SCH (15:56)
[2021-10-24] MEDS ORDERED: Hydrocortisone Sodium Succ 100 MG/2 ML VIAL IVP SCH (16:00)
[2021-10-24] MEDS ORDERED: Furosemide 40 MG TABLET PO SCH (17:00)
[2021-10-24] MEDS ORDERED: Melatonin 3 MG TABLET PO PRN (21:00)
[2021-10-24] MEDS: Ondansetron 4 MG/2 ML VIAL IVP PRN (21:27)
[2021-10-25] MEDS: Piperacillin/Tazobactam 3.375 GM in 0.9 % Sodium Chloride Mini Bag 100 ML IVPB SCH ×4 (00:58→23:41)
[2021-10-25 02:08] LABS: Hematocrit 24.9 % (35.3-44.9); Hemoglobin 8.2 g/dL (11.5-15.4); Mean Corpuscular HGB Conc 32.9 g/dL (31.6-35.5); Mean Corpuscular Hemoglobin 32.3 pg (28.0-33.3); Mean Platelet Volume 10.7 fL (9.4-12.4); Platelet Count 193 K/mcL (140-400); Red Blood Count 2.54 M/mcL (3.82-4.97); Red Cell Distribution Width 14.9 % (11.5-14.5); White Blood Count 29.6 K/mcL (4.3-11.1)
[2021-10-25] MEDS: Levalbuterol Neb 1.25 MG/3 ML IH SCH ×4 (03:49→21:59)
[2021-10-25 05:08] LABS: Potassium 3.1 mEq/L (3.5-5.1)
[2021-10-25] MEDS ORDERED: Potassium Chloride Elixir 20 MEQ/15 ML UDC PO ONE ×2 (07:42→17:00)
[2021-10-25] MEDS: Ascorbic Acid 500 MG TABLET PO SCH (09:11)
[2021-10-25] MEDS: *HR* Digoxin 0.125 MG TABLET PO SCH (09:11)
[2021-10-25] MEDS: Cholecalciferol (D-3) 1,000 UNIT (25MCG) TABLET PO SCH (09:11)
[2021-10-25] MEDS: Ranolazine 500 MG TAB.ER.12H PO SCH ×2 (09:11→20:53)
[2021-10-25] MEDS: Furosemide 40 MG TABLET PO SCH ×2 (09:12→15:57)
[2021-10-25] MEDS: Cyanocobalamin (B-12) 1,000 MCG TABLET PO SCH (09:12)
[2021-10-25] MEDS: Budesonide/Formoterol 160/4.5 1 PUFF INH IH SCH ×2 (10:24→21:59)
[2021-10-25] MEDS: Ondansetron 4 MG/2 ML VIAL IVP PRN (20:46)
[2021-10-25] MEDS: Heparin 25,000UNIT/250ML 1/2NS 25,000 UNIT/250 ML IV.SOLN IVC SCH (23:26)
[2021-10-25 23:42] LABS: Bilirubin,Urine Negative (Negative); Blood,Urine Negative (Negative); Clarity,Urine Clear (Clear); Color,Urine Light-Yellow (Yellow); Glucose,Urine (UA) Normal (Normal); Ketones,Urine Negative (Negative); Leukocyte Esterase,Urine Negative (Negative); Nitrite,Urine Negative (Negative); Protein,Urine Negative (Neg-Trace); Specific Gravity,Urine 1.014 (1.010-1.025); Urobilinogen,Urine Normal (Normal)
[2021-10-26 00:46] LABS: Mean Corpuscular HGB Conc 33.5 g/dL (31.6-35.5)
[2021-10-26 00:47] LABS: Hematocrit 23.6 % (35.3-44.9); Hemoglobin 7.9 g/dL (11.5-15.4); Mean Corpuscular Hemoglobin 32.9 pg (28.0-33.3); Mean Corpuscular Volume 98.3 fL (83.0-100.0); Platelet Count 190 K/mcL (140-400); White Blood Count 28.7 K/mcL (4.3-11.1)
[2021-10-26 01:04] LABS: Calcium 7.1 mg/dL (8.6-10.3); Magnesium 1.8 mg/dL (1.6-2.6)
[2021-10-26] MEDS: Levalbuterol Neb 1.25 MG/3 ML IH SCH ×4 (03:34→22:50)
[2021-10-26] MEDS ORDERED: Potassium Chloride Elixir 20 MEQ/15 ML UDC PO ONE (07:01)
[2021-10-26] MEDS: Piperacillin/Tazobactam 3.375 GM in 0.9 % Sodium Chloride Mini Bag 100 ML IVPB SCH ×2 (08:24→16:33)
[2021-10-26] MEDS: Ranolazine 500 MG TAB.ER.12H PO SCH ×2 (08:26→21:34)
[2021-10-26] MEDS: Furosemide 40 MG TABLET PO SCH ×2 (08:26→16:33)
[2021-10-26] MEDS: *HR* Digoxin 0.125 MG TABLET PO SCH (08:27)
[2021-10-26] MEDS: Cholecalciferol (D-3) 1,000 UNIT (25MCG) TABLET PO SCH (08:27)
[2021-10-26] MEDS: Ascorbic Acid 500 MG TABLET PO SCH (08:27)
[2021-10-26] MEDS: Cyanocobalamin (B-12) 1,000 MCG TABLET PO SCH (08:49)
[2021-10-26] MEDS: Budesonide/Formoterol 160/4.5 1 PUFF INH IH SCH ×2 (10:20→22:50)
[2021-10-26] MEDS ORDERED: Calcium Gluconate 1gm/50mL 1 GM/50 ML BAG IVPB ONE (13:22)
[2021-10-26] MEDS: D5% in 0.45% NACL w KCl 20 MEQ/1,000 ML MLS IVC SCH (14:05)
[2021-10-26 20:13] LABS: Campylobacter by PCR Not detected (Not detect)
[2021-10-26 20:16] LABS: Adenovirus F 40/41 PCR Not detected (Not detect); Astrovirus PCR Not detected (Not detect); C.difficile Toxin A/B Gene PCR DETECTED (Not detect); Cryptosporidium by PCR Not detected (Not detect); Cyclospora cayetanensis PCR Not detected (Not detect); E. coli O157 by PCR Not detected (Not detect); Entamoeba histolytica PCR Not detected (Not detect); Enteroaggregative E.coli(EAEC) Not detected (Not detect); Enteropathogenic E.coli(EPEC) Not detected (Not detect); Enterotoxigenic E.coli (ETEC) Not detected (Not detect); Giardia lamblia PCR Not detected (Not detect); Norovirus GI/GII PCR Not detected (Not detect); Plesiomonas shigelloides PCR Not detected (Not detect); Rotavirus A PCR Not detected (Not detect); Salmonella PCR Not detected (Not detect); Sapovirus PCR Not detected (Not detect); Shig/EnteroinvasiveE coli EIEC Not detected (Not detect); Shigalike tox-prod E coli STEC Not detected (Not detect); Vibrio PCR Not detected (Not detect); Vibrio cholerae PCR Not detected (Not detect); Yersinia enterocolitica PCR Not detected (Not detect)
[2021-10-26] MEDS: Vancomycin Oral Soln 125 MG/2.5 ML UDC PO SCH (23:46)
[2021-10-27] MEDS: Piperacillin/Tazobactam 3.375 GM in 0.9 % Sodium Chloride Mini Bag 100 ML IVPB SCH ×3 (00:06→16:45)
[2021-10-27] MEDS: D5% in 0.45% NACL w KCl 20 MEQ/1,000 ML MLS IVC SCH ×2 (02:53→20:30)
[2021-10-27] MEDS: Levalbuterol Neb 1.25 MG/3 ML IH SCH ×4 (04:08→20:12)
[2021-10-27] MEDS: Heparin 25,000UNIT/250ML 1/2NS 25,000 UNIT/250 ML IV.SOLN IVC SCH (06:21)
[2021-10-27 06:37] LABS: Hematocrit 22.2 % (35.3-44.9); Hemoglobin 7.3 g/dL (11.5-15.4); Mean Corpuscular HGB Conc 32.9 g/dL (31.6-35.5); Mean Corpuscular Hemoglobin 32.7 pg (28.0-33.3); Mean Corpuscular Volume 99.6 fL (83.0-100.0); Mean Platelet Volume 10.9 fL (9.4-12.4); Platelet Count 229 K/mcL (140-400); Red Blood Count 2.23 M/mcL (3.82-4.97); Red Cell Distribution Width 15.2 % (11.5-14.5); White Blood Count 20.5 K/mcL (4.3-11.1)
[2021-10-27] MEDS ORDERED: Magnesium Sulfate 1 GM/102 ML PIGGYBACK IVPB ONE (09:30)
[2021-10-27] MEDS: Cholecalciferol (D-3) 1,000 UNIT (25MCG) TABLET PO SCH (10:19)
[2021-10-27] MEDS: Ascorbic Acid 500 MG TABLET PO SCH (10:19)
[2021-10-27] MEDS: Furosemide 40 MG TABLET PO SCH (10:19)
[2021-10-27] MEDS: Cyanocobalamin (B-12) 1,000 MCG TABLET PO SCH (10:19)
[2021-10-27] MEDS: Ranolazine 500 MG TAB.ER.12H PO SCH ×2 (10:20→22:16)
[2021-10-27] MEDS: *HR* Digoxin 0.125 MG TABLET PO SCH (10:20)
[2021-10-27] MEDS: Budesonide/Formoterol 160/4.5 1 PUFF INH IH SCH ×2 (10:45→20:12)
[2021-10-27] MEDS: Vancomycin Oral Soln 125 MG/2.5 ML UDC PO SCH ×3 (10:50→22:46)
[2021-10-27 15:42] LABS: Albumin 2.2 g/dL (3.5-5.7); Albumin/Globulin Ratio 0.8 (1.1-2.2); Bilirubin,Total 0.8 mg/dL (0.3-1.0); Calcium 6.8 mg/dL (8.6-10.3); Globulin 2.7 g/dL (2.4-3.5); Potassium 2.9 mEq/L (3.5-5.1); Total Protein 4.9 g/dL (6.4-8.9)
[2021-10-27] MEDS ORDERED: CefOXitin 2,000 MG VIAL ONE ×2 (15:56→18:31)
[2021-10-27] MEDS ORDERED: 0.9 % Sodium Chloride 250 ML IVC SCH (16:15)
[2021-10-27] MEDS ORDERED: *HR* FentaNYL (PF) 100 MCG/2 ML VIAL ONE (16:17)
[2021-10-27] MEDS ORDERED: *HR* Propofol 200 MG/20 ML VIAL IVP ONE (16:17)
[2021-10-27] MEDS ORDERED: Lidocaine -MPF 2% 5 ML VIAL ONE (16:18)
[2021-10-27] MEDS ORDERED: *HR* Succinylcholine 200 MG/10 ML VIAL IVP ONE (16:18)
[2021-10-27] MEDS ORDERED: EPHEDrine 50 MG/ML VIAL ONE (17:05)
[2021-10-27] MEDS ORDERED: Ondansetron 4 MG/2 ML VIAL ONE (17:15)
[2021-10-27] MEDS ORDERED: Sugammadex Sodium 200 MG/2 ML VIAL IV ONE (17:42)
[2021-10-27] MEDS ORDERED: CefOXitin 1,000 MG VIAL ONE ×2 (18:11→18:13)
[2021-10-27] MEDS ORDERED: Micafungin 100 MG in 0.9 % Sodium Chloride Mini Bag 100 ML IVPB SCH (18:15)
[2021-10-27] MEDS ORDERED: Heparin 1,000 UNITS/500 mL 500 ML ONE (19:15)
[2021-10-27] MEDS ORDERED: *HR* Rocuronium Bromide 50 MG/5 ML VIAL ONE (19:26)
[2021-10-27] MEDS ORDERED: Lacri-Lube 3.5 GM TUBE ONE (19:44)
[2021-10-27] MEDS: 0.9 % Sodium Chloride 1,000 ML IVC SCH (20:00)
[2021-10-27] MEDS ORDERED: Artificial Tears SOLN 15 ML BOTTLE BOTH EYES PRN (20:08)
[2021-10-27] MEDS ORDERED: FentaNYL (PF) 1,000 MCG/100 ML IV.SOLN IVC SCH (20:15)
[2021-10-27] MEDS ORDERED: Chlorhexidine Rinse 15 ML MOUTHWASH MM SCH (21:00)
[2021-10-27 21:13] LABS: Blood Gas VT 430 cc; Mixed Venous Blood pCO2 61 mmHg (44-46); Mixed Venous Blood pH 7.16 pH Units (7.34-7.36); Mixed Venous Blood pO2 39 mmHg (35-45)
[2021-10-27] MEDS ORDERED: 0.9 % Sodium Chloride 1,000 ML ONE ×2 (21:42→21:45)
[2021-10-27 21:50] LABS: VBG Ionized Calcium 0.98 mmol/L (1.15-1.35)
[2021-10-27] MEDS: Calcium Gluconate 1gm/50mL 1 GM/50 ML BAG IVPB SCH ×2 (23:04→23:34)
[2021-10-27] MEDS: Artificial Tears SOLN 15 ML BOTTLE BOTH EYES SCH (23:34)
[2021-10-27 23:46] LABS: Calcium 6.3 mg/dL (8.6-10.3); Magnesium 1.9 mg/dL (1.6-2.6); Phosphorous 5.4 mg/dL (2.7-4.5); Potassium 3.9 mEq/L (3.5-5.1)
[2021-10-28] MEDS: Piperacillin/Tazobactam 3.375 GM in 0.9 % Sodium Chloride Mini Bag 100 ML IVPB SCH ×3 (00:04→17:44)
[2021-10-28] MEDS ORDERED: 0.9 % Sodium Chloride 1,000 ML ONE (00:45)
[2021-10-28] MEDS: 0.9 % Sodium Chloride 1,000 ML IVC SCH ×3 (01:45→03:46)
[2021-10-28 02:00] LABS: Hematocrit 33.9 % (35.3-44.9)
[2021-10-28 02:03] LABS: Hemoglobin 10.9 g/dL (11.5-15.4)
[2021-10-28 03:03] LABS: VBG Ionized Calcium 0.96 mmol/L (1.15-1.35)
[2021-10-28] MEDS: Levalbuterol Neb 1.25 MG/3 ML IH SCH (03:11)
[2021-10-28 03:19] LABS: Basophils # 0.1 K/mcL (0.0-0.2); Basophils % 0.4 %; Eosinophils % 0.1 %; Hematocrit 28.8 % (35.3-44.9); Hemoglobin 9.5 g/dL (11.5-15.4); Lymphocytes # 0.8 K/mcL (0.6-4.6); Lymphocytes % 3.1 %; Mean Corpuscular Hemoglobin 31.1 pg (28.0-33.3); Mean Corpuscular Volume 94.4 fL (83.0-100.0); Mean Platelet Volume 11.3 fL (9.4-12.4); Monocytes # 0.9 K/mcL (0.0-1.3); Monocytes % 3.8 %; Neutrophils # 22.2 K/mcL (1.6-8.9); Nucleated Red Blood Cells 0.4 /100 WBC (0); Platelet Count 218 K/mcL (140-400); Red Blood Count 3.05 M/mcL (3.82-4.97); Segmented Neutrophils % 91.6 %; White Blood Count 24.2 K/mcL (4.3-11.1)
[2021-10-28 03:35] LABS: Albumin 1.7 g/dL (3.5-5.7); Albumin/Globulin Ratio 0.8 (1.1-2.2); Anisocytosis 1+ (Not Present); Bilirubin,Total 0.9 mg/dL (0.3-1.0); Calcium 6.2 mg/dL (8.6-10.3); Globulin 2.1 g/dL (2.4-3.5); Large Platelets Present (Not Present); Magnesium 2.2 mg/dL (1.6-2.6); Platelet Estimate Normal (Normal); Potassium 3.5 mEq/L (3.5-5.1); Total Protein 3.8 g/dL (6.4-8.9)
[2021-10-28] MEDS: Calcium Gluconate 1gm/50mL 1 GM/50 ML BAG IVPB SCH ×2 (03:45→04:03)
[2021-10-28] MEDS ORDERED: Albumin 25% 25gram/100mL 25 GM/100 ML IV.SOLN IVPB ONE (03:47)
[2021-10-28 05:34] LABS: ABG Base Excess -6 mEq/L (-2 to 3); ABG HCO3 16 mEq/L (21-27); ABG Oxygen Saturation 100 % (95-98); ABG PCO2 20 mmHg (35-45); ABG PH 7.52 pH Units (7.32-7.45); ABG PO2 172 mmHg (85-104); ABG TCO2 17 mEq/L (20-26); Blood Gas Modality ASSIST CONTROL; Blood Gas VT 430 cc
[2021-10-28] MEDS ORDERED: Lidocaine -MPF 1% 5 ML AMPUL INFILT ONE ×2 (05:56→07:55)
[2021-10-28] MEDS: Artificial Tears SOLN 15 ML BOTTLE BOTH EYES SCH ×6 (05:57→23:55)
[2021-10-28] MEDS ORDERED: Pantoprazole 40 MG VIAL IVP SCH ×2 (06:30→09:00)
[2021-10-28] MEDS ORDERED: *HR* Metoprolol 5 MG/5 ML VIAL IVP PRN (07:55)
[2021-10-28] MEDS ORDERED: D5% in 0.45% NACL w KCl 20 MEQ/1,000 ML MLS IVC SCH (07:55)
[2021-10-28] MEDS ORDERED: Artificial Tears SOLN 15 ML BOTTLE BOTH EYES PRN (07:55)
[2021-10-28] MEDS ORDERED: *HR* Heparin 5,000 UNIT/ML VIAL IVP ONE ×2 (07:55→20:00)
[2021-10-28] MEDS ORDERED: Naloxone 0.4 MG/ML INJ IVP PRN (07:55)
[2021-10-28] MEDS ORDERED: *HR* Heparin 5,000 UNIT/ML VIAL IVP PRN ×3 (07:55→20:00)
[2021-10-28] MEDS ORDERED: Furosemide 20 MG/2 ML VIAL IVP SCH ×2 (08:00→09:00)
[2021-10-28 08:23] LABS: ABG Base Excess -6 mEq/L (-2 to 3); ABG HCO3 18 mEq/L (21-27); ABG Oxygen Saturation 95 % (95-98); ABG PCO2 29 mmHg (35-45); ABG PO2 75 mmHg (85-104); ABG TCO2 19 mEq/L (20-26); Blood Gas VT 380 cc
[2021-10-28] MEDS: Chlorhexidine Rinse 15 ML MOUTHWASH MM SCH ×2 (08:33→20:38)
[2021-10-28] MEDS: Pantoprazole 40 MG VIAL IVP SCH (08:33)
[2021-10-28] MEDS: Levothyroxine Sodium 100 MCG VIAL IVP SCH (08:34)
[2021-10-28] MEDS ORDERED: Albumin Human 5% 12.5 GM/250 ML IV.SOLN IVPB ONE (08:45)
[2021-10-28] MEDS: Vancomycin Oral Soln 125 MG/2.5 ML UDC PO SCH ×4 (09:04→20:39)
[2021-10-28] MEDS: FentaNYL (PF) 1,000 MCG/100 ML IV.SOLN IVC SCH ×2 (14:34→22:04)
[2021-10-28] MEDS ORDERED: Ipratropium/Albuterol Neb 3 ML IH PRN (14:58)
[2021-10-28 15:15] LABS: Basophils % 0.3 %
[2021-10-28 15:16] LABS: Basophils # 0.1 K/mcL (0.0-0.2); Hematocrit 23.9 % (35.3-44.9); Hemoglobin 7.9 g/dL (11.5-15.4); Immature Granulocytes % 4.6 % (0-4); Lymphocytes # 0.8 K/mcL (0.6-4.6); Mean Corpuscular HGB Conc 33.1 g/dL (31.6-35.5); Mean Corpuscular Volume 93.7 fL (83.0-100.0); Mean Platelet Volume 11.3 fL (9.4-12.4); Monocytes # 1.1 K/mcL (0.0-1.3); Monocytes % 4.1 %; Neutrophils # 22.9 K/mcL (1.6-8.9); Nucleated Red Blood Cells 0.3 /100 WBC (0); Platelet Count 213 K/mcL (140-400); Red Blood Count 2.55 M/mcL (3.82-4.97); Red Cell Distribution Width 20.6 % (11.5-14.5)
[2021-10-28 15:26] LABS: Heparin anti-factor XA UFH < 0.04 IU/mL (0.30-0.70)
[2021-10-28 15:27] LABS: INR 1.2; Prothrombin Time 12.9 Seconds (9.4-12.1)
[2021-10-28 15:29] LABS: Activated Partial Thrombo Time 28.9 Seconds (26.0-36.0)
[2021-10-28 16:00] LABS: Anisocytosis 1+ (Not Present); Platelet Estimate Normal (Normal)
[2021-10-28] MEDS: Heparin 25,000UNIT/250ML 1/2NS 25,000 UNIT/250 ML IV.SOLN IVC SCH (18:02)
[2021-10-28] MEDS ORDERED: Micafungin 100 MG in 0.9 % Sodium Chloride Mini Bag 100 ML IVPB SCH (18:15)
[2021-10-28] MEDS ORDERED: Furosemide 20 MG/2 ML VIAL IVP ONE (22:26)
[2021-10-28] MEDS: MetroNIDAZOLE 500 MG/100 ML 500 MG/100 ML BAG IVPB SCH (23:54)
[2021-10-29] MEDS: Norepinephrine 4 MG/254 ML IV.SOLN IVC SCH ×4 (00:56→23:07)
[2021-10-29 02:43] LABS: VBG Ionized Calcium 1.01 mmol/L (1.15-1.35)
[2021-10-29 03:05] LABS: Basophils % 0.3 %
[2021-10-29 03:06] LABS: Basophils # 0.1 K/mcL (0.0-0.2); Hematocrit 24.6 % (35.3-44.9); Immature Granulocytes % 4.1 % (0-4); Lymphocytes # 0.9 K/mcL (0.6-4.6); Lymphocytes % 2.6 %; Mean Corpuscular HGB Conc 32.5 g/dL (31.6-35.5); Mean Corpuscular Hemoglobin 31.4 pg (28.0-33.3); Mean Corpuscular Volume 96.5 fL (83.0-100.0); Mean Platelet Volume 11.5 fL (9.4-12.4); Monocytes # 1.8 K/mcL (0.0-1.3); Monocytes % 5.3 %; Neutrophils # 29.2 K/mcL (1.6-8.9); Nucleated Red Blood Cells 0.7 /100 WBC (0); Platelet Count 231 K/mcL (140-400); Red Blood Count 2.55 M/mcL (3.82-4.97); Red Cell Distribution Width 20.7 % (11.5-14.5); Segmented Neutrophils % 87.7 %
[2021-10-29 03:11] LABS: White Blood Count 33.3 K/mcL (4.3-11.1)
[2021-10-29 03:28] LABS: Albumin 2.3 g/dL (3.5-5.7); Bilirubin,Direct 0.4 mg/dL (0.0-0.2); Bilirubin,Indirect 0.3 mg/dL (0.0-1.0); Bilirubin,Total 0.7 mg/dL (0.3-1.0); Calcium 6.9 mg/dL (8.6-10.3); Globulin 2.3 g/dL (2.4-3.5); Phosphorous 4.2 mg/dL (2.7-4.5); Potassium 3.4 mEq/L (3.5-5.1); Total Protein 4.6 g/dL (6.4-8.9)
[2021-10-29 03:32] LABS: Acanthocytes 2+ (Not Present); Macrocytosis Present (Not Present); Platelet Estimate Normal (Normal)
[2021-10-29 04:13] LABS: ABG Base Excess -7 mEq/L (-2 to 3); ABG HCO3 19 mEq/L (21-27); ABG Oxygen Saturation 93 % (95-98); ABG PCO2 39 mmHg (35-45); ABG PO2 72 mmHg (85-104); ABG TCO2 20 mEq/L (20-26); Blood Gas Modality ASSIST CONTROL; Blood Gas VT 380 cc
[2021-10-29] MEDS: FentaNYL (PF) 1,000 MCG/100 ML IV.SOLN IVC SCH ×3 (04:26→20:09)
[2021-10-29] MEDS: Artificial Tears SOLN 15 ML BOTTLE BOTH EYES SCH ×5 (04:28→20:11)
[2021-10-29] MEDS: Cefepime HCl 1,000 MG in 0.9 % Sodium Chloride Mini Bag 100 ML IVPB SCH ×2 (05:15→17:21)
[2021-10-29] MEDS: Calcium Gluconate 1gm/50mL 1 GM/50 ML BAG IVPB SCH ×2 (06:13→06:38)
[2021-10-29] MEDS: *HR* Heparin 5,000 UNIT/ML VIAL IVP PRN (06:44)
[2021-10-29] MEDS ORDERED: Ringers Solution, Lactated 500 ML IVC ONE (08:38)
[2021-10-29] MEDS: MetroNIDAZOLE 500 MG/100 ML 500 MG/100 ML BAG IVPB SCH ×2 (08:55→17:20)
[2021-10-29] MEDS: Vancomycin Oral Soln 125 MG/2.5 ML UDC PO SCH ×4 (08:58→20:11)
[2021-10-29] MEDS: Chlorhexidine Rinse 15 ML MOUTHWASH MM SCH ×2 (08:58→20:11)
[2021-10-29] MEDS: Fluconazole 400 MG/200 ML 400 MG/200 ML BAG IVPB SCH (08:58)
[2021-10-29] MEDS: Levothyroxine Sodium 100 MCG VIAL IVP SCH (08:59)
[2021-10-29] MEDS: Pantoprazole 40 MG VIAL IVP SCH (08:59)
[2021-10-29] MEDS ORDERED: D10% in Water 500 ML IVC PRN (11:07)
[2021-10-29] MEDS ORDERED: *HR* Dextrose 50 % in Water (Syg) 50 ML SYRINGE IVP PRN (12:00)
[2021-10-29] MEDS ORDERED: Dextrose Gel 15 GM/37.5 ML TUBE PO PRN ×2 (12:00)
[2021-10-29] MEDS ORDERED: D5% in Water 1,000 ML IVC PRN (12:00)
[2021-10-29] MEDS: Insulin LISPRO 300 UNITS/3 ML VIAL SUBQ SCH ×3 (12:01→21:00)
[2021-10-29] MEDS ORDERED: Clinimix E 5%-15% SOLUTION 2,000 ML with MVI, adult with vitamin K 10 ML IVC SCH (17:00)
[2021-10-29] MEDS: Heparin 25,000UNIT/250ML 1/2NS 25,000 UNIT/250 ML IV.SOLN IVC SCH (17:59)
[2021-10-30] MEDS: MetroNIDAZOLE 500 MG/100 ML 500 MG/100 ML BAG IVPB SCH ×4 (00:57→23:55)
[2021-10-30] MEDS: Insulin LISPRO 300 UNITS/3 ML VIAL SUBQ SCH ×6 (00:57→21:42)
[2021-10-30] MEDS: Artificial Tears SOLN 15 ML BOTTLE BOTH EYES SCH ×6 (00:57→19:40)
[2021-10-30] MEDS: Norepinephrine 4 MG/254 ML IV.SOLN IVC SCH ×6 (03:41→23:52)
[2021-10-30 04:36] LABS: ABG Base Excess -10 mEq/L (-2 to 3); ABG HCO3 18 mEq/L (21-27); ABG Oxygen Saturation 89 % (95-98); ABG PCO2 49 mmHg (35-45); ABG PH 7.18 pH Units (7.32-7.45); ABG PO2 70 mmHg (85-104); ABG TCO2 20 mEq/L (20-26); Blood Gas Modality AF; Blood Gas VT 380 cc
[2021-10-30 04:59] LABS: VBG Ionized Calcium 1.04 mmol/L (1.15-1.35)
[2021-10-30] MEDS: Cefepime HCl 1,000 MG in 0.9 % Sodium Chloride Mini Bag 100 ML IVPB SCH (05:06)
[2021-10-30 05:09] LABS: Hemoglobin 7.6 g/dL (11.5-15.4)
[2021-10-30 05:10] LABS: Hematocrit 24.2 % (35.3-44.9); Mean Corpuscular HGB Conc 31.4 g/dL (31.6-35.5); Mean Corpuscular Hemoglobin 30.8 pg (28.0-33.3); Mean Platelet Volume 11.2 fL (9.4-12.4); Nucleated Red Blood Cells 1.5 /100 WBC (0); Platelet Count 274 K/mcL (140-400); Red Blood Count 2.47 M/mcL (3.82-4.97); Red Cell Distribution Width 21.6 % (11.5-14.5)
[2021-10-30 05:19] LABS: White Blood Count 30.8 K/mcL (4.3-11.1)
[2021-10-30 05:28] LABS: Albumin 2.1 g/dL (3.5-5.7); Albumin/Globulin Ratio 0.9 (1.1-2.2); Bilirubin,Direct 0.2 mg/dL (0.0-0.2); Bilirubin,Indirect 0.3 mg/dL (0.0-1.0); Bilirubin,Total 0.5 mg/dL (0.3-1.0); Calcium 6.9 mg/dL (8.6-10.3); Globulin 2.4 g/dL (2.4-3.5); Phosphorous 5.6 mg/dL (2.7-4.5); Potassium 3.9 mEq/L (3.5-5.1); Total Protein 4.5 g/dL (6.4-8.9)
[2021-10-30] MEDS: Sodium Bicarbonate 75 MEQ in 0.45 % Sodium Chloride 1,000 ML IVC SCH ×2 (05:53→18:00)
[2021-10-30] MEDS: FentaNYL (PF) 1,000 MCG/100 ML IV.SOLN IVC SCH ×2 (06:06→16:20)
[2021-10-30] MEDS: Calcium Gluconate 1gm/50mL 1 GM/50 ML BAG IVPB SCH ×2 (06:09→08:13)
[2021-10-30 06:10] LABS: Lymphocytes # 0.6 K/mcL (0.6-4.6); Monocytes # 1.2 K/mcL (0.0-1.3); Platelet Estimate Normal (Normal)
[2021-10-30] MEDS: Fluconazole 400 MG/200 ML 400 MG/200 ML BAG IVPB SCH (08:09)
[2021-10-30] MEDS: Levothyroxine Sodium 100 MCG VIAL IVP SCH (08:11)
[2021-10-30] MEDS: Pantoprazole 40 MG VIAL IVP SCH (08:11)
[2021-10-30] MEDS: Chlorhexidine Rinse 15 ML MOUTHWASH MM SCH ×2 (08:12→19:39)
[2021-10-30] MEDS: Vancomycin Oral Soln 125 MG/2.5 ML UDC PO SCH ×3 (09:59→17:11)
[2021-10-30 10:22] LABS: ABG Base Excess -8 mEq/L (-2 to 3); ABG HCO3 19 mEq/L (21-27); ABG Oxygen Saturation 91 % (95-98); ABG PCO2 42 mmHg (35-45); ABG PH 7.26 pH Units (7.32-7.45); ABG PO2 69 mmHg (85-104); ABG TCO2 20 mEq/L (20-26); Blood Gas VT 400 cc
[2021-10-30 12:17] LABS: VBG Ionized Calcium 1.07 mmol/L (1.15-1.35)
[2021-10-30 12:37] LABS: Potassium 3.5 mEq/L (3.5-5.1)
[2021-10-30] MEDS: Calcium Gluconate 1gm/50mL 1 GM/50 ML BAG IVPB PRN ×2 (13:21→14:29)
[2021-10-30] MEDS ORDERED: Clinimix E 5%-15% SOLUTION 2,000 ML with MVI, adult with vitamin K 10 ML IVC SCH (17:00)
[2021-10-30 17:58] LABS: VBG Ionized Calcium 1.04 mmol/L (1.15-1.35)
[2021-10-30 18:16] LABS: Calcium 7.4 mg/dL (8.6-10.3)
[2021-10-30] MEDS ORDERED: Calcium Chloride 1,000 MG in 0.9 % Sodium Chloride 100 ML IVPB ONE (18:33)
[2021-10-30] MEDS ORDERED: Albumin 25% 25gram/100mL 25 GM/100 ML IV.SOLN ONE (19:47)
[2021-10-30] MEDS ORDERED: Albumin 25% 25gram/100mL 25 GM/100 ML IV.SOLN IVPB ONE (20:05)
[2021-10-30 20:13] LABS: Bilirubin,Urine Negative (Negative); Blood,Urine Negative (Negative); Clarity,Urine Clear (Clear); Color,Urine Light-Yellow (Yellow); Glucose,Urine (UA) Normal (Normal); Ketones,Urine Negative (Negative); Leukocyte Esterase,Urine Negative (Negative); Mucus,Urine Few per lpf (None-Few); Nitrite,Urine Negative (Negative); Protein,Urine 50 mg/dL (Neg-Trace); RBC,Urine 0-3 per hpf (0-3); Specific Gravity,Urine 1.017 (1.010-1.025); Urobilinogen,Urine Normal (Normal); WBC,Urine 0-3 per hpf (0-3)
[2021-10-30 20:19] LABS: Sodium, Urine 10.2 mEq/L
[2021-10-30] MEDS: Heparin 25,000UNIT/250ML 1/2NS 25,000 UNIT/250 ML IV.SOLN IVC SCH (23:54)
[2021-10-31] MEDS: Insulin LISPRO 300 UNITS/3 ML VIAL SUBQ SCH ×6 (00:49→21:26)
[2021-10-31] MEDS: Artificial Tears SOLN 15 ML BOTTLE BOTH EYES SCH ×6 (00:50→21:18)
[2021-10-31 01:39] LABS: Basophils # 0.1 K/mcL (0.0-0.2); Basophils % 0.2 %; Eosinophils # 0.4 K/mcL (0.0-0.6); Eosinophils % 1.7 %; Hemoglobin 6.8 g/dL (11.5-15.4); Immature Granulocytes % 2.4 % (0-4); Lymphocytes # 0.9 K/mcL (0.6-4.6); Lymphocytes % 4.2 %; Mean Corpuscular HGB Conc 32.4 g/dL (31.6-35.5); Mean Corpuscular Hemoglobin 31.8 pg (28.0-33.3); Mean Corpuscular Volume 98.1 fL (83.0-100.0); Mean Platelet Volume 10.7 fL (9.4-12.4); Monocytes # 0.9 K/mcL (0.0-1.3); Monocytes % 4.4 %; Neutrophils # 17.8 K/mcL (1.6-8.9); Nucleated Red Blood Cells 1.2 /100 WBC (0); Platelet Count 230 K/mcL (140-400); Red Blood Count 2.14 M/mcL (3.82-4.97); Red Cell Distribution Width 20.7 % (11.5-14.5); Segmented Neutrophils % 87.1 %; White Blood Count 20.5 K/mcL (4.3-11.1)
[2021-10-31 01:44] LABS: VBG Ionized Calcium 1.18 mmol/L (1.15-1.35)
[2021-10-31 01:59] LABS: Albumin 2.1 g/dL (3.5-5.7); Bilirubin,Direct 0.2 mg/dL (0.0-0.2); Bilirubin,Indirect 0.2 mg/dL (0.0-1.0); Bilirubin,Total 0.4 mg/dL (0.3-1.0); Calcium 7.8 mg/dL (8.6-10.3); Globulin 2.2 g/dL (2.4-3.5); Magnesium 1.9 mg/dL (1.6-2.6); Phosphorous 4.5 mg/dL (2.7-4.5); Potassium 3.7 mEq/L (3.5-5.1); Total Protein 4.3 g/dL (6.4-8.9)
[2021-10-31] MEDS: FentaNYL (PF) 1,000 MCG/100 ML IV.SOLN IVC SCH ×3 (02:40→22:43)
[2021-10-31 04:43] LABS: ABG Base Excess -6 mEq/L (-2 to 3); ABG HCO3 19 mEq/L (21-27); ABG Oxygen Saturation 72 % (95-98); ABG PCO2 32 mmHg (35-45); ABG PH 7.37 pH Units (7.32-7.45); ABG PO2 38 mmHg (85-104); ABG TCO2 20 mEq/L (20-26); Blood Gas Modality AF; Blood Gas VT 400 cc
[2021-10-31] MEDS ORDERED: 0.9 % Sodium Chloride 250 ML ONE ×2 (05:46→07:38)
[2021-10-31] MEDS: Norepinephrine 4 MG/254 ML IV.SOLN IVC SCH ×3 (05:49→19:43)
[2021-10-31] MEDS ORDERED: Cefepime HCl 1,000 MG in 0.9 % Sodium Chloride Mini Bag 100 ML IVPB SCH (06:00)
[2021-10-31] MEDS: Sodium Bicarbonate 75 MEQ in 0.45 % Sodium Chloride 1,000 ML IVC SCH ×2 (06:07→18:16)
[2021-10-31] MEDS: MetroNIDAZOLE 500 MG/100 ML 500 MG/100 ML BAG IVPB SCH ×2 (07:17→15:50)
[2021-10-31] MEDS: Levothyroxine Sodium 100 MCG VIAL IVP SCH (07:18)
[2021-10-31] MEDS: Chlorhexidine Rinse 15 ML MOUTHWASH MM SCH ×2 (07:18→21:19)
[2021-10-31] MEDS: Pantoprazole 40 MG VIAL IVP SCH (07:19)
[2021-10-31] MEDS: Vancomycin Oral Soln 125 MG/2.5 ML UDC PO SCH ×5 (07:19→21:18)
[2021-10-31] MEDS: Piperacillin/Tazobactam 3.375 GM in 0.9 % Sodium Chloride Mini Bag 100 ML IVPB SCH ×2 (09:43→15:48)
[2021-10-31] MEDS: Fluconazole 200 MG/100 ML 200 MG/100 ML BAG IVPB SCH (09:44)
[2021-10-31] MEDS: *HR* Heparin 5,000 UNIT/ML VIAL IVP PRN (13:11)
[2021-10-31 13:42] LABS: Hematocrit 29.2 % (35.3-44.9)
[2021-10-31 13:49] LABS: Hemoglobin 9.4 g/dL (11.5-15.4)
[2021-10-31] MEDS ORDERED: Clinimix E 5%-15% SOLUTION 2,000 ML with MVI, adult with vitamin K 10 ML IVC SCH (17:00)
[2021-10-31] MEDS: Heparin 25,000UNIT/250ML 1/2NS 25,000 UNIT/250 ML IV.SOLN IVC SCH (17:55)
[2021-11-01] MEDS: Artificial Tears SOLN 15 ML BOTTLE BOTH EYES SCH ×7 (00:38→23:44)
[2021-11-01] MEDS: Insulin LISPRO 300 UNITS/3 ML VIAL SUBQ SCH ×7 (00:38→23:44)
[2021-11-01] MEDS: MetroNIDAZOLE 500 MG/100 ML 500 MG/100 ML BAG IVPB SCH ×4 (00:41→23:43)
[2021-11-01] MEDS: Piperacillin/Tazobactam 3.375 GM in 0.9 % Sodium Chloride Mini Bag 100 ML IVPB SCH ×2 (00:41→08:27)
[2021-11-01] MEDS: Norepinephrine 4 MG/254 ML IV.SOLN IVC SCH ×5 (02:41→20:23)
[2021-11-01 04:06] LABS: ABG Base Excess -6 mEq/L (-2 to 3); ABG HCO3 21 mEq/L (21-27); ABG Oxygen Saturation 93 % (95-98); ABG PCO2 47 mmHg (35-45); ABG PH 7.26 pH Units (7.32-7.45); ABG PO2 77 mmHg (85-104); ABG TCO2 23 mEq/L (20-26); Blood Gas VT 400 cc
[2021-11-01 04:06] LABS: VBG Ionized Calcium 0.85 mmol/L (1.15-1.35)
[2021-11-01 04:29] LABS: Alanine Aminotransferase 7 Units/L (7-52); Albumin < 1.5 g/dL (3.5-5.7); Alkaline Phosphatase 46 Units/L (34-104); Aspartate Amino Transferase 11 Units/L (13-39); BUN/Creatinine Ratio 46 (6-26); Bilirubin,Total 0.3 mg/dL (0.3-1.0); Blood Urea Nitrogen 36 mg/dL (8-23); Calcium 5.3 mg/dL (8.6-10.3); Carbon Dioxide 24 mEq/L (23-29); Chloride 115 mEq/L (98-107); Glucose 91 mg/dL (70-105); Magnesium 1.3 mg/dL (1.6-2.6); Osmolality,Calculated 306 (280-300); Potassium 2.9 mEq/L (3.5-5.1); Sodium 144 mEq/L (136-145); Total Protein 3.2 g/dL (6.4-8.9); eGFR For African Americans > 60 (> 60); eGFR For Non-African Americans > 60 (> 60)
[2021-11-01] MEDS ORDERED: Albumin 25% 25gram/100mL 25 GM/100 ML IV.SOLN IVPB ONE ×2 (05:22→15:46)
[2021-11-01] MEDS ORDERED: Calcium Chloride 2,000 MG in 0.9 % Sodium Chloride 100 ML IVPB ONE (05:45)
[2021-11-01 05:46] LABS: Hematocrit 27.2 % (35.3-44.9); Hemoglobin 8.9 g/dL (11.5-15.4); Mean Corpuscular HGB Conc 32.7 g/dL (31.6-35.5); Mean Corpuscular Volume 88.6 fL (83.0-100.0); Mean Platelet Volume 11.4 fL (9.4-12.4); Neutrophils # 16.5 K/mcL (1.6-8.9); Nucleated Red Blood Cells 4.3 /100 WBC (0); Platelet Count 179 K/mcL (140-400); Red Blood Count 3.07 M/mcL (3.82-4.97); Red Cell Distribution Width 22.1 % (11.5-14.5); White Blood Count 20.1 K/mcL (4.3-11.1)
[2021-11-01] MEDS: Sodium Bicarbonate 75 MEQ in 0.45 % Sodium Chloride 1,000 ML IVC SCH ×2 (06:15→18:25)
[2021-11-01 06:27] LABS: Monocytes # 1.6 K/mcL (0.0-1.3); Platelet Estimate Decreased (Normal)
[2021-11-01] MEDS: FentaNYL (PF) 1,000 MCG/100 ML IV.SOLN IVC SCH ×2 (08:10→20:23)
[2021-11-01] MEDS: Fluconazole 200 MG/100 ML 200 MG/100 ML BAG IVPB SCH (08:18)
[2021-11-01] MEDS: Levothyroxine Sodium 100 MCG VIAL IVP SCH (08:19)
[2021-11-01] MEDS: Chlorhexidine Rinse 15 ML MOUTHWASH MM SCH ×2 (08:19→20:11)
[2021-11-01] MEDS: Pantoprazole 40 MG VIAL IVP SCH (08:20)
[2021-11-01] MEDS: Vancomycin Oral Soln 125 MG/2.5 ML UDC PO SCH ×4 (08:23→21:33)
[2021-11-01 10:30] LABS: ABG Base Excess -7 mEq/L (-2 to 3); ABG HCO3 21 mEq/L (21-27); ABG Oxygen Saturation 95 % (95-98); ABG PCO2 49 mmHg (35-45); ABG PH 7.24 pH Units (7.32-7.45); ABG PO2 92 mmHg (85-104); ABG TCO2 22 mEq/L (20-26)
[2021-11-01] MEDS: Meropenem 1,000 MG in 0.9 % Sodium Chloride Mini Bag 100 ML IVPB SCH ×2 (11:01→17:44)
[2021-11-01 12:35] LABS: VBG Ionized Calcium 1.17 mmol/L (1.15-1.35)
[2021-11-01 12:51] LABS: Magnesium 2.1 mg/dL (1.6-2.6); Phosphorous 4.1 mg/dL (2.7-4.5)
[2021-11-01 14:51] LABS: Calcium 7.5 mg/dL (8.6-10.3); Potassium 4.5 mEq/L (3.5-5.1)
[2021-11-01] MEDS ORDERED: Furosemide 20 MG/2 ML VIAL IVP ONE (15:45)
[2021-11-01] MEDS ORDERED: Clinimix E 5%-15% SOLUTION 2,000 ML with MVI, adult with vitamin K 10 ML IVC SCH (17:00)
[2021-11-01] MEDS: *HR* Heparin 5,000 UNIT/ML VIAL SQ SCH (17:43)
[2021-11-02] MEDS: Norepinephrine 4 MG/254 ML IV.SOLN IVC SCH ×2 (03:03→18:03)
[2021-11-02] MEDS: Meropenem 1,000 MG in 0.9 % Sodium Chloride Mini Bag 100 ML IVPB SCH ×3 (03:03→17:10)
[2021-11-02 03:51] LABS: Basophils # 0.1 K/mcL (0.0-0.2); Basophils % 0.7 %; Eosinophils # 0.2 K/mcL (0.0-0.6); Eosinophils % 1.3 %; Hematocrit 29.6 % (35.3-44.9); Hemoglobin 9.6 g/dL (11.5-15.4); Immature Granulocytes % 6.6 % (0-4); Lymphocytes # 0.7 K/mcL (0.6-4.6); Lymphocytes % 3.7 %; Mean Corpuscular HGB Conc 32.4 g/dL (31.6-35.5); Mean Corpuscular Hemoglobin 29.3 pg (28.0-33.3); Mean Corpuscular Volume 90.2 fL (83.0-100.0); Mean Platelet Volume 11.5 fL (9.4-12.4); Monocytes # 0.9 K/mcL (0.0-1.3); Monocytes % 4.9 %; Nucleated Red Blood Cells 5.3 /100 WBC (0); Platelet Count 186 K/mcL (140-400); Red Blood Count 3.28 M/mcL (3.82-4.97); Red Cell Distribution Width 22.1 % (11.5-14.5); Segmented Neutrophils % 82.8 %; White Blood Count 18.4 K/mcL (4.3-11.1)
[2021-11-02] MEDS: Artificial Tears SOLN 15 ML BOTTLE BOTH EYES SCH ×6 (03:51→23:23)
[2021-11-02] MEDS: Insulin LISPRO 300 UNITS/3 ML VIAL SUBQ SCH ×6 (03:51→23:37)
[2021-11-02 03:52] LABS: Alanine Aminotransferase 8 Units/L (7-52); Albumin 1.5 g/dL (3.5-5.7); Albumin/Globulin Ratio 0.6 (1.1-2.2); Alkaline Phosphatase 58 Units/L (34-104); Aspartate Amino Transferase 17 Units/L (13-39); BUN/Creatinine Ratio 49 (6-26); Bilirubin,Total 0.4 mg/dL (0.3-1.0); Blood Urea Nitrogen 47 mg/dL (8-23); Calcium 7.2 mg/dL (8.6-10.3); Carbon Dioxide 24 mEq/L (23-29); Chloride 116 mEq/L (98-107); Globulin 2.6 g/dL (2.4-3.5); Glucose 108 mg/dL (70-105); Magnesium 1.9 mg/dL (1.6-2.6); Osmolality,Calculated 307 (280-300); Phosphorous 4.1 mg/dL (2.7-4.5); Potassium 4.2 mEq/L (3.5-5.1); Sodium 142 mEq/L (136-145); Total Protein 4.1 g/dL (6.4-8.9); eGFR For African Americans > 60 (> 60); eGFR For Non-African Americans 55 (> 60)
[2021-11-02 03:56] LABS: Neutrophils # 15.2 K/mcL (1.6-8.9)
[2021-11-02 03:57] LABS: Platelet Estimate Normal (Normal)
[2021-11-02 04:42] LABS: ABG Base Excess -4 mEq/L (-2 to 3); ABG HCO3 23 mEq/L (21-27); ABG Oxygen Saturation 99 % (95-98); ABG PCO2 51 mmHg (35-45); ABG PH 7.27 pH Units (7.32-7.45); ABG PO2 148 mmHg (85-104); ABG TCO2 25 mEq/L (20-26); Blood Gas Modality AF; Blood Gas VT 400 cc
[2021-11-02] MEDS: *HR* Heparin 5,000 UNIT/ML VIAL SQ SCH ×2 (05:04→17:11)
[2021-11-02] MEDS: Sodium Bicarbonate 75 MEQ in 0.45 % Sodium Chloride 1,000 ML IVC SCH (05:04)
[2021-11-02] MEDS: Fluconazole 200 MG/100 ML 200 MG/100 ML BAG IVPB SCH (07:45)
[2021-11-02] MEDS: Levothyroxine Sodium 100 MCG VIAL IVP SCH (07:45)
[2021-11-02] MEDS: Chlorhexidine Rinse 15 ML MOUTHWASH MM SCH ×2 (07:45→19:33)
[2021-11-02] MEDS: Pantoprazole 40 MG VIAL IVP SCH (07:45)
[2021-11-02] MEDS: Vancomycin Oral Soln 125 MG/2.5 ML UDC PO SCH ×4 (07:46→20:01)
[2021-11-02] MEDS: MetroNIDAZOLE 500 MG/100 ML 500 MG/100 ML BAG IVPB SCH ×2 (07:46→17:09)
[2021-11-02] MEDS ORDERED: Amiodarone Premix 150 MG/100 ML BAG IVPB ONE (09:26)
[2021-11-02] MEDS ORDERED: Amiodarone Premix 360 MG/200 ML BAG IVC ONE (09:26)
[2021-11-02] MEDS: Albumin 25% 12.5gm/50mL 12.5 GM/50 ML IV.SOLN IVPB SCH ×3 (09:57→23:13)
[2021-11-02] MEDS: Furosemide 20 MG/2 ML VIAL IVP SCH ×2 (10:28→18:03)
[2021-11-02] MEDS: FentaNYL (PF) 1,000 MCG/100 ML IV.SOLN IVC SCH (14:57)
[2021-11-02] MEDS ORDERED: Albumin 25% 12.5gm/50mL 12.5 GM/50 ML IV.SOLN IVPB SCH (16:00)
[2021-11-02] MEDS: Amiodarone Premix 360 MG/200 ML BAG IVC SCH (16:16)
[2021-11-02 16:43] LABS: VBG HCO3 25 mEq/L (21-27); VBG PCO2 51 mmHg (41-51); VBG PH 7.31 pH Units (7.32-7.42); VBG PO2 153 mmHg (25-50)
[2021-11-02 16:48] LABS: VBG Ionized Calcium 1.12 mmol/L (1.15-1.35)
[2021-11-02 16:56] LABS: BUN/Creatinine Ratio 53 (6-26); Blood Urea Nitrogen 50 mg/dL (8-23); Calcium 7.2 mg/dL (8.6-10.3); Carbon Dioxide 25 mEq/L (23-29); Chloride 114 mEq/L (98-107); Glucose 127 mg/dL (70-105); Magnesium 2.1 mg/dL (1.6-2.6); Osmolality,Calculated 307 (280-300); Potassium 4.1 mEq/L (3.5-5.1); Sodium 141 mEq/L (136-145); eGFR For African Americans > 60 (> 60); eGFR For Non-African Americans 57 (> 60)
[2021-11-02] MEDS ORDERED: Clinimix E 5%-15% SOLUTION 2,000 ML with MVI, adult with vitamin K 10 ML IVC SCH (17:00)
[2021-11-03] MEDS: MetroNIDAZOLE 500 MG/100 ML 500 MG/100 ML BAG IVPB SCH ×4 (00:02→23:03)
[2021-11-03] MEDS: Meropenem 1,000 MG in 0.9 % Sodium Chloride Mini Bag 100 ML IVPB SCH ×3 (01:08→21:32)
[2021-11-03] MEDS: Furosemide 20 MG/2 ML VIAL IVP SCH (01:08)
[2021-11-03] MEDS: Amiodarone Premix 360 MG/200 ML BAG IVC SCH ×2 (04:21→16:49)
[2021-11-03] MEDS: Artificial Tears SOLN 15 ML BOTTLE BOTH EYES SCH ×6 (04:22→23:08)
[2021-11-03] MEDS: Insulin LISPRO 300 UNITS/3 ML VIAL SUBQ SCH ×5 (04:22→20:40)
[2021-11-03 04:33] LABS: Basophils # 0.1 K/mcL (0.0-0.2); Basophils % 0.5 %; Eosinophils # 0.2 K/mcL (0.0-0.6); Eosinophils % 1.1 %; Hematocrit 28.5 % (35.3-44.9); Hemoglobin 9.1 g/dL (11.5-15.4); Immature Granulocytes % 6.3 % (0-4); Lymphocytes % 6.6 %; Mean Corpuscular HGB Conc 31.9 g/dL (31.6-35.5); Mean Corpuscular Hemoglobin 28.3 pg (28.0-33.3); Mean Corpuscular Volume 88.8 fL (83.0-100.0); Mean Platelet Volume 11.1 fL (9.4-12.4); Monocytes # 0.5 K/mcL (0.0-1.3); Monocytes % 3.6 %; Neutrophils # 12.3 K/mcL (1.6-8.9); Nucleated Red Blood Cells 1.5 /100 WBC (0); Platelet Count 158 K/mcL (140-400); Red Blood Count 3.21 M/mcL (3.82-4.97); Red Cell Distribution Width 21.5 % (11.5-14.5); Segmented Neutrophils % 81.9 %
[2021-11-03 04:39] LABS: VBG Ionized Calcium 1.13 mmol/L (1.15-1.35)
[2021-11-03 04:53] LABS: Alanine Aminotransferase 9 Units/L (7-52); Albumin 1.8 g/dL (3.5-5.7); Albumin/Globulin Ratio 0.7 (1.1-2.2); Alkaline Phosphatase 57 Units/L (34-104); Aspartate Amino Transferase 19 Units/L (13-39); BUN/Creatinine Ratio 58 (6-26); Bilirubin,Total 0.3 mg/dL (0.3-1.0); Blood Urea Nitrogen 52 mg/dL (8-23); Calcium 7.5 mg/dL (8.6-10.3); Carbon Dioxide 26 mEq/L (23-29); Chloride 111 mEq/L (98-107); Globulin 2.7 g/dL (2.4-3.5); Glucose 97 mg/dL (70-105); Osmolality,Calculated 306 (280-300); Phosphorous 3.9 mg/dL (2.7-4.5); Potassium 4.1 mEq/L (3.5-5.1); Sodium 141 mEq/L (136-145); Total Protein 4.5 g/dL (6.4-8.9); eGFR For African Americans > 60 (> 60); eGFR For Non-African Americans > 60 (> 60)
[2021-11-03] MEDS: *HR* Heparin 5,000 UNIT/ML VIAL SQ SCH ×2 (05:25→16:46)
[2021-11-03] MEDS: Fluconazole 200 MG/100 ML 200 MG/100 ML BAG IVPB SCH (07:41)
[2021-11-03] MEDS: Vancomycin Oral Soln 125 MG/2.5 ML UDC PO SCH ×4 (07:42→20:33)
[2021-11-03] MEDS: Pantoprazole 40 MG VIAL IVP SCH (07:42)
[2021-11-03] MEDS: Levothyroxine Sodium 100 MCG VIAL IVP SCH (07:42)
[2021-11-03] MEDS: Chlorhexidine Rinse 15 ML MOUTHWASH MM SCH ×2 (07:42→20:40)
[2021-11-03] MEDS ORDERED: Furosemide 40 MG/4 ML VIAL IVP ONE (10:46)
[2021-11-03] MEDS ORDERED: Albumin 25% 25gram/100mL 25 GM/100 ML IV.SOLN IVPB ONE (10:46)
[2021-11-03] MEDS ORDERED: Calcium Gluconate 1gm/50mL 1 GM/50 ML BAG IVPB PRN (13:55)
[2021-11-03] MEDS ORDERED: Potassium Phosphate 44 MEQ in 0.9 % Sodium Chloride 250 ML IVPB PRN (14:07)
[2021-11-03] MEDS: FentaNYL (PF) 1,000 MCG/100 ML IV.SOLN IVC SCH (14:15)
[2021-11-03] MEDS ORDERED: Iopamidol - 370 500 ML MLS IVP ONE (14:20)
[2021-11-03] MEDS: Clinimix E 5%-20% SOLUTION 2,000 ML, Amino Acids 10% 200 ML with MVI, adult with vita... IVC SCH (16:47)
[2021-11-03] MEDS: Thiamine (B-1) 100 MG in 0.9 % Sodium Chloride 50 ML IVPB SCH (20:33)
[2021-11-03] MEDS ORDERED: Thiamine (B-1) 100 MG TABLET PO SCH (21:00)
[2021-11-04] MEDS: Insulin LISPRO 300 UNITS/3 ML VIAL SUBQ SCH ×6 (00:21→21:03)
[2021-11-04] MEDS: FentaNYL (PF) 1,000 MCG/100 ML IV.SOLN IVC SCH ×3 (01:17→16:13)
[2021-11-04] MEDS: Amiodarone Premix 360 MG/200 ML BAG IVC SCH ×2 (04:19→16:13)
[2021-11-04] MEDS: Artificial Tears SOLN 15 ML BOTTLE BOTH EYES SCH ×5 (04:19→21:04)
[2021-11-04 04:23] LABS: ABG Base Excess -1 mEq/L (-2 to 3); ABG HCO3 23 mEq/L (21-27); ABG Oxygen Saturation 95 % (95-98); ABG PCO2 38 mmHg (35-45); ABG PO2 73 mmHg (85-104); ABG TCO2 25 mEq/L (20-26); Blood Gas Modality AF; Blood Gas VT 450 cc
[2021-11-04 04:25] LABS: VBG Ionized Calcium 1.07 mmol/L (1.15-1.35)
[2021-11-04 04:46] LABS: Basophils # 0.1 K/mcL (0.0-0.2); Basophils % 0.4 %; Eosinophils # 0.1 K/mcL (0.0-0.6); Eosinophils % 0.9 %; Hematocrit 27.4 % (35.3-44.9); Hemoglobin 8.8 g/dL (11.5-15.4); Immature Granulocytes % 3.6 % (0-4); Lymphocytes # 0.7 K/mcL (0.6-4.6); Lymphocytes % 5.1 %; Mean Corpuscular HGB Conc 32.1 g/dL (31.6-35.5); Mean Corpuscular Hemoglobin 28.8 pg (28.0-33.3); Mean Corpuscular Volume 89.5 fL (83.0-100.0); Mean Platelet Volume 10.6 fL (9.4-12.4); Monocytes # 0.5 K/mcL (0.0-1.3); Monocytes % 3.7 %; Neutrophils # 11.9 K/mcL (1.6-8.9); Nucleated Red Blood Cells 0.4 /100 WBC (0); Platelet Count 186 K/mcL (140-400); Red Blood Count 3.06 M/mcL (3.82-4.97); Red Cell Distribution Width 21.1 % (11.5-14.5); Segmented Neutrophils % 86.3 %; White Blood Count 13.8 K/mcL (4.3-11.1)
[2021-11-04 05:08] LABS: Alanine Aminotransferase 9 Units/L (7-52); Albumin 1.7 g/dL (3.5-5.7); Albumin/Globulin Ratio 0.6 (1.1-2.2); Alkaline Phosphatase 54 Units/L (34-104); Aspartate Amino Transferase 18 Units/L (13-39); BUN/Creatinine Ratio 62 (6-26); Bilirubin,Total 0.4 mg/dL (0.3-1.0); Blood Urea Nitrogen 50 mg/dL (8-23); Calcium 7.3 mg/dL (8.6-10.3); Carbon Dioxide 23 mEq/L (23-29); Chloride 107 mEq/L (98-107); Globulin 2.9 g/dL (2.4-3.5); Glucose 219 mg/dL (70-105); Magnesium 1.7 mg/dL (1.6-2.6); Osmolality,Calculated 308 (280-300); Phosphorous 3.7 mg/dL (2.7-4.5); Potassium 3.7 mEq/L (3.5-5.1); Sodium 139 mEq/L (136-145); Total Protein 4.6 g/dL (6.4-8.9); Triglycerides 97 mg/dL (< 150); eGFR For African Americans > 60 (> 60); eGFR For Non-African Americans > 60 (> 60)
[2021-11-04 05:21] LABS: Thyroid Stimulating Hormone 10.193 mcIU/mL (0.340-5.600)
[2021-11-04 05:31] LABS: Folate 12.4 ng/mL (3.0-16.0)
[2021-11-04] MEDS: *HR* Heparin 5,000 UNIT/ML VIAL SQ SCH ×2 (05:32→17:41)
[2021-11-04 05:35] LABS: Vitamin B12 > 1500 pg/mL (250-1100)
[2021-11-04] MEDS: Fluconazole 200 MG/100 ML 200 MG/100 ML BAG IVPB SCH (08:42)
[2021-11-04] MEDS: Chlorhexidine Rinse 15 ML MOUTHWASH MM SCH ×2 (08:42→21:02)
[2021-11-04] MEDS: Levothyroxine Sodium 100 MCG VIAL IVP SCH (08:42)
[2021-11-04] MEDS: MetroNIDAZOLE 500 MG/100 ML 500 MG/100 ML BAG IVPB SCH ×2 (08:42→16:29)
[2021-11-04] MEDS: Pantoprazole 40 MG VIAL IVP SCH (08:42)
[2021-11-04] MEDS: Vancomycin Oral Soln 125 MG/2.5 ML UDC PO SCH ×4 (08:43→21:03)
[2021-11-04] MEDS: Thiamine (B-1) 100 MG in 0.9 % Sodium Chloride 50 ML IVPB SCH ×3 (09:00→21:06)
[2021-11-04] MEDS: Meropenem 1,000 MG in 0.9 % Sodium Chloride Mini Bag 100 ML IVPB SCH ×2 (09:59→21:02)
[2021-11-04 10:09] LABS: Triiodothyronine (T3) Free 2.12 pg/mL (2.50-3.90)
[2021-11-04 12:40] LABS: VBG Ionized Calcium 1.18 mmol/L (1.15-1.35)
[2021-11-04 13:06] LABS: BUN/Creatinine Ratio 65 (6-26); Blood Urea Nitrogen 51 mg/dL (8-23); Calcium 7.6 mg/dL (8.6-10.3); Carbon Dioxide 26 mEq/L (23-29); Chloride 110 mEq/L (98-107); Glucose 124 mg/dL (70-105); Osmolality,Calculated 303 (280-300); Potassium 4.1 mEq/L (3.5-5.1); Sodium 139 mEq/L (136-145); eGFR For African Americans > 60 (> 60); eGFR For Non-African Americans > 60 (> 60)
[2021-11-04] MEDS ORDERED: Clinimix E 5%-20% SOLUTION 2,000 ML, Amino Acids 10% 200 ML with MVI, adult with vita... IVC SCH (17:00)
[2021-11-04] MEDS: Clinimix E 5%-20% SOLUTION 2,000 ML, Amino Acids 10% 200 ML with MVI, adult with vita... IVC SCH (17:43)
[2021-11-04] MEDS ORDERED: Furosemide 40 MG/4 ML VIAL IVP ONE (17:50)
[2021-11-05] MEDS: FentaNYL (PF) 1,000 MCG/100 ML IV.SOLN IVC SCH ×3 (00:47→21:25)
[2021-11-05] MEDS: MetroNIDAZOLE 500 MG/100 ML 500 MG/100 ML BAG IVPB SCH ×2 (00:48→07:48)
[2021-11-05] MEDS: Artificial Tears SOLN 15 ML BOTTLE BOTH EYES SCH ×4 (00:49→11:25)
[2021-11-05] MEDS: Insulin LISPRO 300 UNITS/3 ML VIAL SUBQ SCH ×3 (03:48→09:03)
[2021-11-05 04:26] LABS: ABG Base Excess 1 mEq/L (-2 to 3); ABG HCO3 25 mEq/L (21-27); ABG Oxygen Saturation 95 % (95-98); ABG PCO2 37 mmHg (35-45); ABG PH 7.44 pH Units (7.32-7.45); ABG PO2 71 mmHg (85-104); ABG TCO2 26 mEq/L (20-26); Blood Gas Modality ASSIST CONTROL; Blood Gas VT 450 cc
[2021-11-05 04:43] LABS: Alanine Aminotransferase 8 Units/L (7-52); Albumin 1.8 g/dL (3.5-5.7); Albumin/Globulin Ratio 0.6 (1.1-2.2); Alkaline Phosphatase 56 Units/L (34-104); Aspartate Amino Transferase 17 Units/L (13-39); BUN/Creatinine Ratio 71 (6-26); Bilirubin,Total 0.4 mg/dL (0.3-1.0); Blood Urea Nitrogen 56 mg/dL (8-23); Calcium 7.3 mg/dL (8.6-10.3); Carbon Dioxide 27 mEq/L (23-29); Chloride 109 mEq/L (98-107); Globulin 2.8 g/dL (2.4-3.5); Glucose 130 mg/dL (70-105); Magnesium 1.8 mg/dL (1.6-2.6); Osmolality,Calculated 305 (280-300); Phosphorous 3.9 mg/dL (2.7-4.5); Sodium 139 mEq/L (136-145); Total Protein 4.6 g/dL (6.4-8.9); eGFR For African Americans > 60 (> 60); eGFR For Non-African Americans > 60 (> 60)
[2021-11-05] MEDS: Amiodarone Premix 360 MG/200 ML BAG IVC SCH (04:46)
[2021-11-05] MEDS: *HR* Heparin 5,000 UNIT/ML VIAL SQ SCH (04:47)
[2021-11-05] MEDS: Pantoprazole 40 MG VIAL IVP SCH (07:46)
[2021-11-05] MEDS: Levothyroxine Sodium 100 MCG VIAL IVP SCH (07:46)
[2021-11-05] MEDS: Vancomycin Oral Soln 125 MG/2.5 ML UDC PO SCH (07:46)
[2021-11-05] MEDS: Fluconazole 200 MG/100 ML 200 MG/100 ML BAG IVPB SCH (07:47)
[2021-11-05] MEDS: Chlorhexidine Rinse 15 ML MOUTHWASH MM SCH (07:48)
[2021-11-05] MEDS: Meropenem 1,000 MG in 0.9 % Sodium Chloride Mini Bag 100 ML IVPB SCH (09:37)
[2021-11-05 10:13] LABS: Hematocrit 26.8 % (35.3-44.9); Hemoglobin 8.4 g/dL (11.5-15.4); Mean Corpuscular HGB Conc 31.3 g/dL (31.6-35.5); Mean Corpuscular Hemoglobin 28.3 pg (28.0-33.3); Mean Corpuscular Volume 90.2 fL (83.0-100.0); Mean Platelet Volume 10.8 fL (9.4-12.4); Platelet Count 187 K/mcL (140-400); Red Blood Count 2.97 M/mcL (3.82-4.97); Red Cell Distribution Width 21.4 % (11.5-14.5); White Blood Count 13.2 K/mcL (4.3-11.1)
[2021-11-05] MEDS ORDERED: Glycopyrrolate 0.2 MG/ML VIAL IVP ONE ×2 (11:52→16:22)
[2021-11-05] MEDS: *HR* LORazepam 2 MG/ML VIAL IVP PRN ×3 (12:55→17:06)
[2021-11-05] MEDS: Thiamine (B-1) 100 MG in 0.9 % Sodium Chloride 50 ML IVPB SCH (13:22)
[2021-11-05] MEDS ORDERED: Clinimix E 5%-20% SOLUTION 2,000 ML, Amino Acids 10% 200 ML with MVI, adult with vita... IVC SCH (17:00)
[2021-11-05] MEDS ORDERED: Morphine Sulfate 2 MG/ML SYRINGE IVP PRN (17:22)
[2021-11-05] MEDS: Morphine Sulfate 2 MG/ML SYRINGE IVP PRN ×3 (17:27→20:14)
[2021-11-05] MEDS ORDERED: Atropine Sulfate 1% 40 DROP/2 ML BOTTLE SL PRN (20:36)
[2021-11-05] MEDS ORDERED: *HR* LORazepam 2 MG/ML VIAL IVP PRN (20:36)
[2021-11-05] MEDS ORDERED: Ondansetron ODT 4 MG TAB.RAPDIS SL PRN (20:36)
[2021-11-05] MEDS ORDERED: Scopolamine Patch 1.5 MG PATCH.TD72 TD SCH (20:36)
[2021-11-05] MEDS ORDERED: Chlorhexidine Rinse 15 ML MOUTHWASH MM SCH (21:00)
[2021-11-05] MEDS ORDERED: 0.9 % Sodium Chloride 1,000 ML ONE (21:20)
[2021-11-05] MEDS: Acetaminophen IV 1,000 MG/100 ML BAG IVPB SCH (21:26)
[2021-11-05] MEDS ORDERED: 0.9 % Sodium Chloride 500 ML IVC SCH (22:30)
[2021-11-06] MEDS: Morphine Sulfate 2 MG/ML SYRINGE IVP PRN ×7 (00:58→04:45)
[2021-11-06] MEDS: Artificial Tears SOLN 15 ML BOTTLE BOTH EYES PRN ×2 (01:01→03:47)
[2021-11-06] MEDS: *HR* LORazepam 2 MG/ML VIAL IVP PRN ×2 (03:15→04:09)
[2021-11-06] MEDS: FentaNYL (PF) 1,000 MCG/100 ML IV.SOLN IVC SCH ×2 (05:27→11:57)
[2021-11-06] MEDS: Acetaminophen IV 1,000 MG/100 ML BAG IVPB SCH (06:04)
[2021-11-06] MEDS ORDERED: *HR* LORazepam 2 MG/ML VIAL IVP PRN (10:00)
[2021-11-06 11:32] VITALS: BP 73/47; PULSE 68; TEMP 97.8; O2SAT 83
[2021-11-06] MEDS ORDERED: Atropine 1% Opth Drops 100 DROP/5 ML BOTTLE SL PRN (12:26)
[2021-11-06] MEDS ORDERED: Scopolamine Patch 1.5 MG PATCH.TD72 TD SCH (12:30)
[2021-11-06] MEDS: Artificial Tears SOLN 15 ML BOTTLE BOTH EYES SCH ×3 (12:41→12:51)
[2021-11-06] MEDS ORDERED: Atropine Sulfate 1% 40 DROP/2 ML BOTTLE SL PRN (13:30)
== END 2021-11-06 13:54 | disposition expired | DRG 853 ==
LOC: EMEROOARM 00:20 → 3ANU 00:20 → SUATTDRO 10-20 13:55 → 2NENU 10-21 04:21 → 2NNU 10-21 13:56 → ICNU 10-22 00:15 → 2ANU 10-24 10:30 → ICNU 10-27 17:52 → 3ANU 11-05 20:04
PROVIDERS: ADMIT Internal Medicine; ATTEND Student in an Organized Health Care Education/Training Program